=== PATIENT | male | born 1970 | race Caucasian/White ===

== ENCOUNTER 2022-11-29 09:37 | Outpatient (CLI) | payer MEDICARE, MEDICAID, SELFPAY ==
--- NOTE | 2022-11-30 09:18 | WPDPFTINT ---
PFT Procedure Performed PFT Procedure Performed Plethysmography (Lung Vol) Diffusing Cap (DLCO) Flow Vol Loop Spirometry w/o Bronchodil PFT Interpretation This is a pulmonary function test with spirometry, plethysmography and diffusing capacity. The test was performed and results interpreted in accordance with the 2019 and 2005 ATS/ERS Task Force guidelines respectively using the Global Lung Function Initiative-2012 reference equations. Patient demonstrated good effort and cooperation. Reproducibility criteria were met. The quality of the spirometry maneuver was Grade B. Findings: Spirometry: There is decreased maximal expiratory airflow at all lung volumes with concave expiratory flow tracing. The contour the inspiratory flow tracing is normal. The FVC is 3.34 L, 65% predicted. The FEV1 is 1.77 L, 44% predicted. The FEV1: FVC ratio is 53%. Plethysmography: The total lung capacity is 8.93 L, 125% predicted. The functional residual capacity is 5.96 L, 163% predicted. The residual volume is 5.42 L, 258% predicted. Diffusing capacity: The diffusing capacity unadjusted for hemoglobin and carboxyhemoglobin is 16.0, 52% predicted. The diffusing capacity adjusted for alveolar volume is 2.69, 60% predicted. Impression: There is a severe obstructive abnormality. The increase in residual volume is consistent with air trapping from an obstructive abnormality. Hyperinflation is present as demonstrated by the increase in functional residual capacity and total lung capacity and is consistent with an obstructive abnormality. The diffusing capacity unadjusted for hemoglobin and carboxyhemoglobin is moderately decreased and remains moderately decreased when adjusted for alveolar volume. There are no prior studies for comparison
== END 2022-11-29 09:38 | disposition home or self-care (01) ==
LOC: ANHPFT 09:38
PROVIDERS: Visit Provider Nurse Practitioner Gerontology
DX: J44.9 Chronic obstructive pulmonary disease, unspecified (principal); R94.2 Abnormal results of pulmonary function studies
CPT/HCPCS: 94375; 94726; 94729

== ENCOUNTER 2022-12-14 08:04 | Outpatient (CLI) | payer MEDICARE, MEDICAID, SELFPAY ==
--- NOTE | 2022-12-14 | ECHO_ITS ---
Patient Info Name: Esa Markham Age: 52 years : 1970 Gender: Male Ht: 71 in Wt: 198 lbs BSA: 2.14 m2 HR: 92 bpm Technical Quality: Poor Exam Date: 12/14/2022 8:24 AM Exam Location: [facility] Patient Status: Outpatient Admit Date: 12/14/2022 Staff Ordering Physician: Tex, Ruth CERDA Senior Hydrogeologist: Shanika Suarez RDCS Attending Provider: GiovanyRuth APRN Exam Type: CA echo doppler color flow Study Info Indications - copd Complete two-dimensional, color flow and Doppler transthoracic echocardiogram is performed. Reason for Poor Study: poor echocardiographic windows Summary 1. Complete two-dimensional, color flow and Doppler transthoracic echocardiogram is performed. 2. Technically suboptimal study due to poor sonographic images. 3. Left ventricular chamber dimension is normal. 4. Left ventricular systolic function is normal, estimated at 60-65%. 5. The left ventricular diastolic function is grade I diastolic dysfunction. 6. E/e' 6 is not elevated. Left Ventricle E/e' 6 is not elevated. Technically suboptimal study due to poor sonographic images. Left ventricular chamber dimension is normal. Left ventricular systolic function is normal, estimated at 60-65%. The left ventricular diastolic function is grade I diastolic dysfunction. Right Ventricle Right ventricular systolic function is normal based on a normal TAPSE 2.0 cm. Right ventricular chamber dimension is not well visualized. Left Atria Left atrial chamber dimension is normal. Right Atria Right atrial chamber dimension is normal. Aortic Valve The aortic valve is not well visualized. Cannot determine number of aortic valve leaflets. There is no aortic valve stenosis. There is no aortic valve regurgitation. Pulmonic Valve There is no pulmonic regurgitation. Mitral Valve There is no mitral valve stenosis. There is no mitral valve regurgitation. Tricuspid Valve The tricuspid valve leaflets are not well visualized. There is no tricuspid valve regurgitation. No pulmonary hypertension, estimated pulmonary arterial systolic pressure is 6 mmHg. Pericardium/Pleural There is no pericardial effusion. Inferior Vena Cava Normal inferior vena cava with >50% collapse upon inspiration consistent with normal right atrial pressure, 5 mmHg. Aorta The aortic root size at the sinus of Valsalva is normal. Left Ventricular Outflow Tract Name Value Normal LVOT 2D LVOT Diameter 2.1 cm LVOT Doppler LVOT Peak Gradient 2 mmHg LVOT Mean Gradient 1 mmHg LVOT VTI 13 cm LVOT VTI/AV VTI Ratio 1.3 LVOT Stroke Volume 47 ml LVOT CO 3.9 l/min LVOT CI 1.8 l/min/m2 Pulmonic Valve Name Value Normal RVOT Doppler RVOT Peak Gradient 1 mmHg
== END 2022-12-14 08:05 | disposition home or self-care (01) ==
LOC: ANHCARD 08:05
PROVIDERS: Visit Provider Nurse Practitioner Gerontology
DX: J44.9 Chronic obstructive pulmonary disease, unspecified (principal); R06.02 Shortness of breath
CPT/HCPCS: 93306

== ENCOUNTER 2023-05-13 07:24 | Outpatient (CLI) | payer MEDICARE, MEDICAID, SELFPAY ==
--- NOTE | 2023-05-13 | ECHO_ITS ---
Patient Info Name: Esa Markham Age: 52 years : 1970 Gender: Male Ht: 71 in Wt: 188 lbs BSA: 2.08 m2 HR: 94 bpm BP: 118 / 99 mmHg Heart Rhythm: Sinus Rhythm Technical Quality: Poor Exam Date: 05/13/2023 7:39 AM Exam Location: Echo Lab Patient Status: Outpatient Admit Date: 05/13/2023 Staff Ordering Physician: TexRuth APRN Firepot Operator And Tender: Daphney Tarango RDCS Attending Provider: GiovanyRuth APRN Exam Type: CA echo doppler color flow Study Info Indications - COPD Complete two-dimensional, color flow and Doppler transthoracic echocardiogram is performed. Summary 1. Complete two-dimensional, color flow and Doppler transthoracic echocardiogram is performed. 2. Normal left ventricular size and thickness with good contractility of all segments. Ejection fraction is 65-70%. Normal diastolic function. 3. Mild right ventricular hypokinesis by 2D echo. In addition the patient's tricuspid annular velocity and TAPSE are low, also suggesting RV hypokinesis. 4. Normal estimated pulmonary pressure. 5. No significant valve disease. 6. Mass which is probably a fat pad on the right ventricular apical surface, clinical correlation advised. 7. Normal sinus rhythm. Left Ventricle Left ventricular chamber dimension is normal. Left ventricular systolic function is normal, estimated at 65-70%. There is no increased left ventricular wall thickness. Left ventricular septal wall motion is normal. The left ventricular diastolic function is normal. Right Ventricle Right ventricular chamber dimension is normal. Right ventricular systolic function is reduced. Left Atria Left atrial chamber dimension is normal. Right Atria Right atrial chamber dimension is normal. Aortic Valve The aortic valve is trileaflet. There is no aortic valve sclerosis. There is no aortic valve stenosis. There is no aortic valve regurgitation. Pulmonic Valve The pulmonic valve is normal. There is no pulmonic valve stenosis. There is no pulmonic regurgitation. Mitral Valve The mitral valve has normal leaflets. There is no mitral valve stenosis. There is no mitral valve regurgitation. Tricuspid Valve The tricuspid valve leaflets are normal. There is no significant tricuspid valve stenosis. There is trace tricuspid valve regurgitation. No pulmonary hypertension, estimated pulmonary arterial systolic pressure is 24 mmHg. Pericardium/Pleural The pericardium appears normal. There is no pericardial effusion. Inferior Vena Cava Normal inferior vena cava with >50% collapse upon inspiration consistent with Empty right atrial pressure, 10 mmHg. Aorta The aortic root size at the sinus of Valsalva is normal. The prox ascending aorta size is normal. Left Ventricular Outflow Tract Name Value Normal LVOT 2D LVOT Diameter 2.0 cm LVOT Doppler LVOT Peak Gradient 2 mmHg LVOT Mean Gradient 1 mmHg LVOT VTI 12 cm LVOT VTI/AV VTI Ratio 0.9 LVOT Stroke Volume 38 ml LVOT CO 3.3 l/min LVOT CI 1.
== END 2023-05-13 07:25 | disposition home or self-care (01) ==
LOC: ANHCARD 07:27
PROVIDERS: PCP Nurse Practitioner Gerontology; Visit Provider Nurse Practitioner Gerontology
DX: J44.9 Chronic obstructive pulmonary disease, unspecified (principal); R93.1 Abnormal findings on diagnostic imaging of heart and coronary circulation
CPT/HCPCS: 93306

== ENCOUNTER 2024-02-27 12:30 | Outpatient (CLI) | payer MEDICARE, MEDICAID, SELFPAY ==
--- NOTE | 2024-02-27 16:48 | WPDPFTINT ---
PFT Procedure Performed PFT Procedure Performed Plethysmography (Lung Vol) Diffusing Cap (DLCO) Flow Vol Loop Spirometry w/o Bronchodil PFT Interpretation This is a pulmonary function test with spirometry, plethysmography and diffusing capacity. The test was performed and results interpreted in accordance with the 2019 and 2005 ATS/ERS Task Force guidelines respectively using the Global Lung Function Initiative-2012 reference equations. Patient demonstrated good effort and cooperation. Reproducibility criteria were met. The quality of the spirometry maneuver was Grade B. Findings: Spirometry: There is decreased maximal expiratory airflow at all lung volumes with concave expiratory flow tracing. The contour the inspiratory flow tracing is normal. The FVC is 2.50 L, 51% predicted. The FEV1 is 1.22 L, 31% predicted. The FEV1: FVC ratio is 49%. Plethysmography: The total lung capacity is 8.45 L, 121% predicted. The functional residual capacity is 5.49 L, 153% predicted. The residual volume is 4.36 L, 210% predicted. The residual volume: Total lung capacity ratio is 52%. Diffusing capacity: The diffusing capacity unadjusted for hemoglobin and carboxyhemoglobin is 17.3, 57% predicted. The diffusing capacity adjusted for alveolar volume is 2.74, 61% predicted. In comparison to previous pulmonary function testing on 11/29/2022 the FVC has decreased from 3.34 L to 2.50 L. The FEV1 is decreased from 1.77 L to 1.22 L. The total lung capacity is unchanged from 8.93 L to 8.45 L. The functional residual capacity is unchanged from 5.96 L to 5.49 L. The residual volume has decreased from 5.42 L to 4.36 L. The diffusing capacity unadjusted for hemoglobin and carboxyhemoglobin is unchanged from 16.0 to 17.3. The diffusing capacity adjusted for alveolar volume is unchanged from 2.69 to 2.74. Impression: There is a very severe obstructive abnormality. The increase in residual volume to total lung volume ratio is consistent with hyperinflation from an obstructive abnormality. The diffusing capacity unadjusted for hemoglobin and carboxyhemoglobin is moderately decreased and remains mildly decreased when adjusted for alveolar volume. In comparison to previous pulmonary function testing on 11/29/2022, there has been a greater than anticipated time dependent decrease in the FVC, FEV1, and residual volume with no significant change in the total lung capacity, functional residual capacity or diffusing capacity. Clinical correlation is recommended.
== END 2024-02-27 12:31 | disposition home or self-care (01) ==
LOC: ANHPFT 12:31
PROVIDERS: PCP Nurse Practitioner Gerontology
DX: J44.9 Chronic obstructive pulmonary disease, unspecified (principal); R94.2 Abnormal results of pulmonary function studies
CPT/HCPCS: 94375; 94726; 94729

== ENCOUNTER 2024-09-13 15:14 | Outpatient (CLI) | payer MEDICARE, MEDICAID, SELFPAY ==
--- NOTE | ~2024-09-13 | CT_ITS ---
CLINICAL INDICATION: Screening evaluation of the chest COMPARISON: None. TECHNIQUE: Multiple contiguous axial images of the chest was performed without the administration of intravenous contrast. This CT examination was performed utilizing dose reduction techniques. DLP: 138 mGy-cm FINDINGS/OBSERVATIONS: LUNG: Panlobular emphysematous disease with a paucity of interstitial markings. HEART: The heart is of normal size, without pericardial effusion. MEDIASTINUM: Limited evaluation without intravenous contrast. SOFT TISSUES OF THE CHEST: Unremarkable. BONES OF THE CHEST: No acute fracture. No lytic or blastic lesions are identified. UPPER ABDOMEN: Unremarkable IMPRESSION: Unremarkable CT examination of the chest, as detailed above. Lung-RADS category 1: Negative. Continue annual screening with noncontrast low-dose chest CT in 12 mo nt. Reviewed, dictated and finalized at location A. IMPRESSION: Unremarkable CT examination of the chest, as detailed above. Lung-RADS category 1: Negative. Continue annual screening with noncontrast low- dose chest CT in 12 months.
--- OUTSIDE RECORDS SUMMARY | 2024-09-13 18:00 | XMS_ITS | Data Portability ---
Author Organization [facility] [place] [facility] Address [address] [facility] [place] [address] Care Team Providers Care Extrusion Line Operator Name Role Phone MELIZA ASHLEY Primary Care Provider Assessment No assessment recorded. Plan of Treatment Reminders Order Date Submit Date Provider Last Modified By Organization Details Last Modified Time Details Appointments ANY 15 2024 01:30P M Meliza Ashley MD Not available Not available Not available Lab HbA1c (hemogl obin A1c), blood 2024 025 [facility], [address] [place] [address], [address], [place], [address], 07/27/2024 13:14:09 PSA, total, serum or plasma 2024 025 [facility], [address] [place] [address], [address], [place], [address], 07/27/2024 13:14:10 lipid panel, serum 2024 025 [facility], [address] [place] [address], [address], [place], [address], 07/27/2024 13:14:06 BMP, serum or plasma 2024 025 [facility], [address] [place] [address], [address], [place], [address], 07/27/2024 13:14:07 CMP, serum or plasma 2023 024 [facility], [address], [address], [place], [address], 02/07/2024 06:19:18 lipid panel, serum 2023 024 [facility], [address], [address], [place], [address], 02/07/2024 06:19:17 CBC 2023 024 [facility], [address], [address], [place], [address], 02/07/2024 06:19:20 TSH, ultra-s ensitiv e, serum 2023 024 [facility], [address] [facility] [address], [address], [place], [address], 02/07/2024 06:19:18 HbA1c (hemogl obin A1c), blood 2023 024 [facility], [address] [facility] [address], [address], [place], [address], 05/22/2024 01:06:16 Referral general surgeon referra l 2023 024 [facility], [facility] [address], [place], [address], 05/26/2024 12:35:11 Procedures None recorde d. Surgeries None recorde d. Imaging LDCT, chest, for lung cancer screeni ng [address], [address], 06/22/2024 06:14:19 LDCT, chest, for lung cancer screeni ng 2023 024 [facility], [address] [place] [address] [address], [place], [address], 08/13/2024 16:01:33 PFT, complet e 2023 024 [facility], [address] [place] [address] [address], [place], [address], 09/12/2024 05:01:13 Medication Orders albuter ol sulfate 2.5 mg/3 mL (0.083 %) solutio n for nebuliz ation 2023 [facility]24 [facility] [place], [address], 05/26/2024 13:12:48 Spiriva with HandiHa ler 18 mcg and inhalat ion capsule s 2023 025 [facility] [address] [place], [address], 07/26/2024 15:09:12 Ventoli n HFA 90 mcg/act uation aerosol inhaler 2023 024 [facility] [address] [place], [address], 05/19/2024 15:40:03 Wixela Inhub 250 mcg-50 mcg/dos e powder for inhalat ion 2023 025 [facility] [address] [place], [address], 07/26/2024 15:09:19 Wixela Inhub 250 mcg-50 mcg/dos e powder for inhalat ion 2023 024 [facility] [address] [place], [address], 07/26/2024 15:08:53 Spiriva with HandiHa ler 18 mcg and inhalat ion capsule s 2023 024 [facility] [address] [place], [address], 07/26/2024 15:08:37 omepraz ole 20 mg capsule ,delaye d release 2023 024 [facility] [address] [place], [address], 01/12/2024 17:21:43 losarta n 100 mg tablet 2023 024 [facility] [address] [place], [address], 01/12/2024 17:21:42 ezetimi be 10 mg tablet 2023 024 [facility] [address] [place], [address], 01/12/2024 17:21:45 Patient TargetsNo targets recorded. Patient Instructions Encounter Date Encounter Id Patient Instructions Last Modified By Organization Details Last Modified Time 01/12/2024 [id number] When You Want to Lose Weight: Care Instructions [email or web address] Not available 01/12/2024 17:21:35 A healthy lifest yle: care instructions [email or web address] Not available 01/12/2024 17:21:36 gastroesophageal reflux disease (GERD): care instructions [email or web address] Not available 01/12/2024 17:21:36 learning about h igh blood pressure [email or web address] Not available 01/12/2024 17:21:36 high cholesterol : care instructions [email or web address] Not available 01/12/2024 17:21:36 02/03/2024 [id number] A healthy lifest yle: care instructions [email or web address] Not available 02/03/2024 17:24:04 07/26/2024 [id number] learning about h igh blood sugar Not available 07/26/2024 15:32:19 learning about h igh blood pressure [email or web address] Not available 07/26/2024 15:29:43 high cholesterol : care instructions [email or web address] Not available 07/26/2024 15:29:43 chronic obstruct paula pulmonary disease (COPD): care instructions [email or web address] Not available 07/26/2024 15:29:43 learning about c opd and how to prevent lung infections [email or web address] Not available 07/26/2024 15:29:43 Reason for Referral General Surgeon Referral for Mass of scalp Referring Physician: Meliza Ashley, Internal Medicine, Encounter Date: 02/03/2024 Results Created Date Observation Date Name Description Value Unit Range Abnormal Flag Note LastModifiedBy Organization Detail LastModifiedTime 02/06/20 24 02/07/2024 LIPID PANEL cholesterol, total 99 mg/dL 100-19 9 below low normal Not Available [facility] ([facility]) [address] [place], [address], 02/07/2024 06:19:17 02/06/20 24 02/07/2024 LIPID PANEL triglyceride s 108 mg/dL 0-149 Not Available [facility] ([facility]) [address] [place], [address], 02/07/2024 06:19:17 02/06/20 24 02/07/2024 LIPID PANEL HDL cholesterol 40 mg/dL >39 Not Available [facility] ([facility]) [address] [place], [address], 02/07/2024 06:19:17 02/06/20 24 02/07/2024 LIPID PANEL VLDL cholesterol pau 20 mg/dL 5-40 Not Available [facility] ([facility]) [address] [place], [address], 02/07/2024 06:19:17 02/06/20 24 02/07/2024 LIPID PANEL LDL chol calc ([facility]) 39 mg/dL 0-99 Not Available [facility] ([facility]) [address] [place], [address], 02/07/2024 06:19:17 02/06/20 24 02/07/2024 COMP. METAB OLIC PANEL (14) glucose 100 mg/dL 70-99 above high normal Not Available [facility] ([facility]) [address] [place], [address], 02/07/2024 06:19:18 02/06/20 24 02/07/2024 COMP. METAB OLIC PANEL (14) BUN 17 mg/dL 6-24 Not Available [facility] ([facility]) [address] [place], [address], 02/07/2024 06:19:18 02/06/20 24 02/07/2024 COMP. METAB OLIC PANEL (14) creatinine 1.20 mg/dL 0.76-1 .27 Not Available [facility] ([facility]) [address] [facility] [place], [address], 02/07/2024 06:19:18 02/06/20 24 02/07/2024 COMP. METAB OLIC PANEL (14) eGFR 73 mL/mi n/1.7 3 >59 Not Available [facility] ([facility]) [address] [facility] [place], [address], 02/07/2024 06:19:18 02/06/20 24 02/07/2024 COMP. METAB OLIC PANEL (14) BUN/creatini ne ratio 14 9-20 Not Available [facility] ([facility]) [address] [facility] [place], [address], 02/07/2024 06:19:18 02/06/20 24 02/07/2024 COMP. METAB OLIC PANEL (14) sodium 139 mmol/ L 134-14 4 Not Available [facility] ([facility]) [address] [facility] [place], [address], 02/07/2024 06:19:18 02/06/20 24 02/07/2024 COMP. METAB OLIC PANEL (14) potassium 4.3 mmol/ L 3.5-5. 2 Not Available [facility] ([facility]) [address] [facility] [place], [address], 02/07/2024 06:19:18 02/06/20 24 02/07/2024 COMP. METAB OLIC PANEL (14) chloride 100 mmol/ L 96-106 Not Available [facility] ([facility]) [address] [facility] [place], [address], 02/07/2024 06:19:18 02/06/20 24 02/07/2024 COMP. METAB OLIC PANEL (14) carbon dioxide, total 26 mmol/ L 20-29 Not Available [facility] ([facility]) [address] [facility], [place], [address], 02/07/2024 06:19:18 02/06/20 24 02/07/2024 COMP. METAB OLIC PANEL (14) calcium 9.1 mg/dL 8.7-10 .2 Not Available [facility] ([facility]) [address] [facility], [place], [address], 02/07/2024 06:19:18 02/06/20 24 02/07/2024 COMP. METAB OLIC PANEL (14) protein, total 6.9 g/dL 6.0-8. 5 Not Available [facility] ([facility]) [address] [facility], [place], [address], 02/07/2024 06:19:18 02/06/20 24 02/07/2024 COMP. METAB OLIC PANEL (14) albumin 4.3 g/dL 3.8-4. 9 Not Available [facility] ([facility]) [address] [facility] [place], [address], 02/07/2024 06:19:18 02/06/20 24 02/07/2024 COMP. METAB OLIC PANEL (14) globulin, total 2.6 g/dL 1.5-4. 5 Not Available [facility] ([facility]) [address] [facility] [place], [address], 02/07/2024 06:19:18 02/06/20 24 02/07/2024 COMP. METAB OLIC PANEL (14) bilirubin, total 0.3 mg/dL 0.0-1. 2 Not Available [facility] ([facility]) [address] [place], [address], 02/07/2024 06:19:18 02/06/20 24 02/07/2024 COMP. METAB OLIC PANEL (14) alkaline phosphatase 82 IU/L 44-121 Not Available [facility] ([facility]) [address] [place], [address], 02/07/2024 06:19:18 02/06/20 24 02/07/2024 COMP. METAB OLIC PANEL (14) AST (SGOT) 18 IU/L 0-40 Not Available [facility] ([facility]) [address] [place], [address], 02/07/2024 06:19:18 02/06/20 24 02/07/2024 COMP. METAB OLIC PANEL (14) ALT (SGPT) 21 IU/L 0-44 Not Available [facility] ([facility]) [address] [place], [address], 02/07/2024 06:19:18 02/06/20 24 02/07/2024 TSH RFX ON ABNOR MAL TO FREE T4 TSH 1.350 uIU/m L 0.450- 4.500 Not Available [facility] ([facility]) [address] [place], [address], 02/07/2024 06:19:18 02/06/20 24 02/06/2024 ABN OPTIO N 3 abn option 3 Commen t One or more tests were remov ed at the reque st of the patie nt and may not be repre sente d on this repor t. As a resul t, some or all of the tests origi rebecca reque sted may not have been perfo rmed or may be repor ragini separ ately . Pleas e conta ct your patie nt regar ding any neces ya follo w-up. Not Available [facility] ([facility]) [address] [facility], [place], [address], 02/07/2024 06:19:19 02/06/2002/06/2024 CBC, PLATE LET, NO DIFFE RENTI AL WBC 6.2 x10e3 /uL 3.4-10 .8 Not Available [facility] ([facility]) [address] [facility], [place], [address], 02/07/2024 06:19:19 02/06/2002/06/2024 CBC, PLATE LET, NO DIFFE RENTI AL RBC 4.87 x10e6 /uL 4.14-5 .80 Not Available [facility] ([facility]) [address] [facility], [place], [address], 02/07/2024 06:19:19 02/06/2002/06/2024 CBC, PLATE LET, NO DIFFE RENTI AL hemoglobin 14.6 g/dL 13.0-1 7.7 Not Available [facility] ([facility]) [address] [facility], [place], [address], 02/07/2024 06:19:19 02/06/2002/06/2024 CBC, PLATE LET, NO DIFFE RENTI AL hematocrit 43.5 % 37.5-5 1.0 Not Available [facility] ([facility]) [address] [facility], [place], [address], 02/07/2024 06:19:19 02/06/2002/06/2024 CBC, PLATE LET, NO DIFFE RENTI AL MCV 89 fL 79-97 Not Available [facility] ([facility]) [address] [facility], [place], [address], 02/07/2024 06:19:19 02/06/20 24 02/06/2024 CBC, PLATE LET, NO DIFFE RENTI AL MCH 30.0 pg 26.6-3 3.0 Not Available [facility] ([facility]) [address] [facility], [place], [address], 02/07/2024 06:19:19 02/06/20 24 02/06/2024 CBC, PLATE LET, NO DIFFE RENTI AL MCHC 33.6 g/dL 31.5-3 5.7 Not Available [facility] ([facility]) [address] [facility], [place], [address], 02/07/2024 06:19:19 02/06/20 24 02/06/2024 CBC, PLATE LET, NO DIFFE RENTI AL RDW 12.6 % 11.6-1 5.4 Not Available [facility] ([facility]) [address] [facility], [place], [address], 02/07/2024 06:19:19 02/06/20 24 02/06/2024 CBC, PLATE LET, NO DIFFE RENTI AL platelets 193 x10e3 /uL 150-45 0 Not Available [facility] ([facility]) [address] [facility], [place], [address], 02/07/2024 06:19:19 07/26/19 25 07/27/2024 LIPID PANEL cholesterol, total 100 mg/dL 100-19 9 Not Available [facility] ([facility]) [address] [facility], [place], [address], 07/27/2024 13:14:06 07/26/19 25 07/27/2024 LIPID PANEL triglyceride s 137 mg/dL 0-149 Not Available [facility] ([facility]) [address] [facility], [place], [address], 07/27/2024 13:14:06 07/26/19 25 07/27/2024 LIPID PANEL HDL cholesterol 37 mg/dL >39 below low normal Not Available [facility] ([facility]) [address] [facility], [place], [address], 07/27/2024 13:14:06 07/26/19 25 07/27/2024 LIPID PANEL VLDL cholesterol pau 24 mg/dL 5-40 Not Available [facility] ([facility]) [address] [place], [address], 07/27/2024 13:14:06 07/26/19 25 07/27/2024 LIPID PANEL LDL chol calc ([facility]) 39 mg/dL 0-99 Not Available [facility] ([facility]) [address] [place], [address], 07/27/2024 13:14:06 07/26/19 25 07/27/2024 BASIC METAB OLIC PANEL (8) glucose 83 mg/dL 70-99 Not Available [facility] ([facility]) [address] [place], [address], 07/27/2024 13:14:07 07/26/19 25 07/27/2024 BASIC METAB OLIC PANEL (8) BUN 12 mg/dL 6-24 Not Available [facility] ([facility]) [address] [place], [address], 07/27/2024 13:14:07 07/26/19 25 07/27/2024 BASIC METAB OLIC PANEL (8) creatinine 1.17 mg/dL 0.76-1 .27 Not Available [facility] ([facility]) [address] [place], [address], 07/27/2024 13:14:07 07/26/19 25 07/27/2024 BASIC METAB OLIC PANEL (8) eGFR 75 mL/mi n/1.7 3 >59 Not Available [facility] ([facility]) [address] [place], [address], 07/27/2024 13:14:07 07/26/19 25 07/27/2024 BASIC METAB OLIC PANEL (8) BUN/creatini ne ratio 10 9-20 Not Available [facility] ([facility]) [address] [facility] [place], [address], 07/27/2024 13:14:07 07/26/19 25 07/27/2024 BASIC METAB OLIC PANEL (8) sodium 136 mmol/ L 134-14 4 Not Available [facility] ([facility]) [address] [facility], [place], [address], 07/27/2024 13:14:07 07/26/19 25 07/27/2024 BASIC METAB OLIC PANEL (8) potassium 4.3 mmol/ L 3.5-5. 2 Not Available [facility] ([facility]) [address] [facility], [place], [address], 07/27/2024 13:14:07 07/26/19 25 07/27/2024 BASIC METAB OLIC PANEL (8) chloride 97 mmol/ L 96-106 Not Available [facility] ([facility]) [address] [place], [address], 07/27/2024 13:14:07 07/26/19 25 07/27/2024 BASIC METAB OLIC PANEL (8) carbon dioxide, total 22 mmol/ L 20-29 Not Available [facility] ([facility]) [address] [facility], [place], [address], 07/27/2024 13:14:07 07/26/19 25 07/27/2024 BASIC METAB OLIC PANEL (8) calcium 9.5 mg/dL 8.7-10 .2 Not Available [facility] ([facility]) [address] [place], [address], 07/27/2024 13:14:07 07/26/1907/27/2024 HEMOG LOBIN A1C hemoglobin A1C 6.1 % 4.8-5. 6 above high normal Predi abete s: 5.7 - 6.4 Diabe blue: >6.4 Glyce jimbo contr ol for adult s with diabe blue: <7.0 Not Available [facility] ([facility]) [address] [facility], [place], [address], 07/27/2024 13:14:09 07/26/19 25 07/27/2024 PROST ATE-S PECIF IC AG prostate specific Ag 0.4 NG/mL 0.0-4. 0 Catarino ECLIA metho dolog y. Accor ding to the Ameri can [employer] g[employer] iatio n, Serum PSA shoul d decre ase and remai n at undet ectab le level s after radic al prost atect nida. The AUA defin es bioch emica l recur rence as an initi al PSA value 0.2 ng/mL or great er follo wed by a subse quent confi rmato ry PSA value 0.2 ng/mL or great er. Value s obtai susannah with diffe rent assay metho ds or kits canno t be used inter wall eably . Resul ts canno t be inter prete d as absol paula evide nce of the prese nce or absen ce of moon valdivia se. Not Available [facility] ([facility]) [address] [facility], [place], [address], 07/27/2024 13:14:10 04/01/20 24 04/07/2023 home sleep study No observ ation record ed. BARCODE Not Available 2023 16:03:14 06/04/20 24 02/27/2024 [facility] hodil ation No observ ation record ed. [email or web address] Not Available 06/16 10:14:45 Result Notes None recorded. Problems Name Problem SNOMED Code Status Onset Date Resolution Date Notes Provider Name and Address Organization Details Recorded Time Administratio n of influenza vaccine Active 2017 Juaquin Silva PA-C Attn: Angie espinosa,[address] [facility], [place], [address], [facility] 8 16:29:26 Essential hypertension 45944727 Active 2017 Juaquin Silva PA-C Attn: Angie espinosa,[address] [facility], [place], [address], [place] [facility] 8 16:33:09 Acute bronchitis 04153579 Active 2017 Juaquin Silva PA-C Attn: Angie espinosa,[address] [facility], [place], [address], [place] [facility] 8 15:42:40 Serum creatinine outside reference range 872242584 Active 2018 Juaquin Silva PA-C Attn: Accountmihir g,[address] [facility], [place], [address], [place] [facility] 9 15:16:35 Constipation 70514219 Active 2018 Juaquin Silva PA-C Attn: Angie espinosa,[address] [facility], [place], [address], [place] [facility] 9 16:10:36 Chronic obstructive pulmonary disease 72245056 Active 2018 see CXR 08/24/18 Juaquin Silva PA-C Attn: Angie espinosa,[address] [facility], [place], [address], [place] [facility] 9 23:28:23 Chronic kidney disease stage 2 475193618 Active 2018 Juaquin Silva PA-C Attn: Angie espinosa,[address] [facility], [place], [address], [place] [facility] 9 10:33:51 Depressive disorder 75012522 Active 2018 Juaquin Silva PA-C Attn: Isaimihir g,[address] [facility], [place], [address], [place] [facility] 9 16:09:46 Blood in urine 44611305 Active 2018 Juaquin Silva PA-C Attn: Isaimihir g,[address] [facility], [place], [address], [place] [facility] 9 16:22:17 Overweight 441685871 Active 2018 Juaquin Silva PA-C Attn: Accountin g,[address] [facility], [place], [address], [place] [facility] 9 16:29:45 Testosterone level below reference range 435377807 Active 2019 Juaquin Silva PA-C Attn: Accountmihir g,[address] [facility], [place], [address], [place] [facility] 0 17:41:07 Obese 110278507 Active 2019 Juaquin Silva PA-C Attn: Accountin g,[address] [facility], [place], [address], [place] [facility] 0 16:22:25 Screening for malignant neoplasm of prostate Active 2020 Juaquin Silva PA-C Attn: Accountin g,[address] [facility], [place], [address], [place] [facility] 1 14:22:21 Serum vitamin B12 borderline low 849463370 Active 2020 Juaquin Silva PA-C Attn: Accountin g,[address] [facility], [place], [address], [place] [facility] 1 22:22:21 Under immunized 201877502 Active 2020 Juaquin Silva PA-C Attn: Accountin g,[address] [facility], [place], [address], [place] [facility] 1 17:15:06 Hemorrhoids 23113734 Active 2021 Juaquin Silva PA-C Attn: Accountin g,[address] [facility], [place], [address], [place] [facility] 2 15:33:44 Screening for malignant neoplasm of colon Active 2021 Juaquin Silva PA-C Attn: Accountin g,[address] [facility], [place], [address], [place] [facility] 2 15:35:12 Itching of skin 785337624 Active 2022 Meliza Ashley MD Attn: Angie espinosa,[address] [facility], [place], [address], [place] [facility] 3 15:44:37 Colorectal cancer detected by DNA-based stool screening 108008366 Active 2022 Meliza Ashley MD Attn: Angie espinosa,[address] [facility], [place], [address], [place] [facility] 3 20:02:32 History of polyp of colon 565883092 Active 2023 Meliza Ashley MD Attn: Angie espinosa,[address] [facility], [place], [address], [place] [facility] 4 17:22:04 Mass of scalp 099409965 Active 2023 Meliza Ashley MD Attn: Angie espinosa,[address] [facility], [place], [address], [place] [facility] 4 17:21:47 Hyperglycemia 36526822 Active 2024 Meliza Ashley MD Attn: Angie espinosa,[address] [facility], [place], [address], [place] [facility] 5 15:31:23 Gastroesophag eal reflux disease 041655598 Active Juaquin Silva PA-C Attn: Angie espinosa,[address] [facility], [place], [address], [place] [facility] 6 15:41:18 Hyperlipidemi a 89375785 Active Juaquin Silva PA-C Attn: Accountmihir g,[address] [facility], [place], [address], [place] [facility] 6 15:41:18 Tobacco user 803060169 Active Juaquin Silva PA-C Attn: Isaimihir espinosa,[address] [facility], [place], [address], [place] [facility] 6 15:41:18 Anxiety 32037900 Active Juaquin Silva PA-C Attn: Angie espinosa,[address] [facility], [place], [address], [place] [facility] 6 15:41:18 Dental abscess 823281756 Active Juaquin Silva PA-C Attn: Angie espinosa,[address] [facility], [place], [address], [place] [facility] 6 16:43:09 Impotence Active 2016 Juaquin Silva PA-C Attn: Angie espinosa,[address] [facility], [place], [address], [place] [facility] 7 16:19:46 Family history of diabetes mellitus 198304239 Active 2016 Juaquin Silva PA-C Attn: Angie espinosa,[address] [facility], [place], [address], [place] [facility] 7 16:23:26 Melanocytic nevus 910755853 Active 2016 Juaquin Sliva PA-C Attn: Angie espinosa,[address] [facility], [place], [address], [place] [facility] 7 16:26:56 Ingrowing nail 393309970 Active 2016 right second toe Juaquin Silva PA-C Attn: Angie espinosa,[address] [facility], [place], [address], [place] [facility] 2 14:17:59 Problem Notes None recorded. Procedures Surgical History None recorded. Imaging Results Imaging Date Name Status LastModified by Organization Details LastModified Time 04/07/2023 home sleep study completed BARCODE Informat ion not available 04/01/2024 16:03:14 02/27/2024 spirometry, pre and post bronchodilation completed Information not available 06/16/2024 10:14:45 Procedure Notes None recorded. Medical Equipment None Reported. Allergies Allergen ID Allergen Name Allergen Category Reaction Reaction Severity Criticality Documentation Date Start Date Code Code System Note Provider Name and Address Organization Details Recorded Time 98062 Iodinated contrast media (substanc e) medicatio n Not available Not available Not available 09/26/2015 74210 2004 SNOMED Not Available Not Available Not Available Medications Name Sig Start Date Stop Date Status Note LastModified by Organization Details LastModified Time Prescript ion - Renewal 07/26 completed Not Available Not Available Not Available losartan 50 mg tablet Take 1 tablet every day by oral route in the morning for 30 days. 05/15 completed Not Available Not Available Not Available amoxicill in 500 mg capsule 11/30 completed Not Available Not Available Not Available atorvasta tin 40 mg tablet TAKE 1 TABLET BY MOUTH ONCE DAILY active Not Available Not Available No t Available promethaz ine-DM 6.25 mg-15 mg/5 mL oral syrup Take 5 mL every 6 hours by oral route for 10 days. 07/02 completed Not Available Not Available Not Available paroxetin e 10 mg tablet 02/26 completed Not Available Not Available Not Available benztropi ne 0.5 mg tablet 07/02 completed Not Available Not Available Not Available quetiapin e 300 mg tablet TAKE 2 TABLETS BY MOUTH ONCE DAILY AT BEDTIME active Not Available Not Available No t Available albuterol sulfate 2.5 mg/3 mL (0.083 %) solution for nebulizat ion USE 1 VIAL IN NEBULIZE R THREE TIMES DAILY NEEDED active Not Available Not Available No t Available trazodone 50 mg tablet 07/02 completed Not Available Not Available Not Available azithromy beck 250 mg tablet TAKE 2 TABLETS (500 MG) BY ORAL ROUTE ONCE DAILY FOR 1 DAY THEN 1 TABLET (250 MG) BY ORAL ROUTE ONCE DAILY FOR 4 DAYS 05/15 completed Not Available Not Available Not Available ibuprofen 800 mg tablet Take 1 tablet(s ) 3 times a day by oral route with meals for 30 days. 07/12 completed high serum creatini ne times 2 .. Not Available Not Available Not Available thiothixe ne 5 mg capsule 07/02 completed Not Available Not Available Not Available famotidin e 40 mg tablet Take 1 tablet by mouth once daily 07/26 completed Not Available Not Available Not Available prednison e 20 mg tablet TAKE 2 TABLETS BY MOUTH ONCE DAILY FOR 5 DAYS WITH FOOD FOR RASH 07/26 completed Not Available Not Available Not Available trifluope razine 5 mg tablet 09/16 completed Not Available Not Available Not Available amlodipin e 2.5 mg tablet TAKE 1 TABLET BY MOUTH ONCE DAILY IN THE MORNING 07/26 completed Not Available Not Available Not Available ciproflox acin 500 mg tablet Take 1 tablet every 12 hours by oral route for 10 days. 07/02 completed Not Available Not Available Not Available sildenafi l 100 mg tablet Take 1 TABLET BY MOUTH 1 HOUR PRIOR TO SEXUAL ACTIVITY DIRECTED , NOT TO EXCEED 1 IN 24 HOURS. active Not Available Not Available No t Available triamcino lone acetonide 0.1 % topical cream 05/15 completed Not Available Not Available Not Available simvastat in 40 mg tablet 07/02 completed Not Available Not Available Not Available hydrocort isone 2.5 % topical cream with perineal applicato r APPLY A THIN LAYER TO THE AFFECTED AREA(S) BY TOPICAL ROUTE 2-4 TIMESDAI LY 07/17 completed Not Available Not Available Not Available IBU 600 mg tablet 09/16 completed Not Available Not Available Not Available trazodone 100 mg tablet TAKE 1 TABLET BY MOUTH ONCE DAILY AT BEDTIME active Not Available Not Available No t Available oseltamiv ir 75 mg capsule TAKE 1 CAPSULE BY MOUTH ONCE DAILY FOR 5 DAYS 07/17 completed Not Available Not Available Not Available docusate sodium 100 mg capsule Take 1 capsule twice a day by oral route for 30 days. 09/16 completed Not Available Not Available Not Available omeprazol e 20 mg capsule,d elayed release TAKE 1 CAPSULE BY MOUTH TWICE DAILY BEFORE MEAL(S) 2024 active Not Available Not Available Not Avai lable trifluope razine 10 mg tablet 07/02 completed Not Available Not Available Not Available hydrocort isone 2.5 % topical cream 07/17 completed Not Available Not Available Not Available hydroxyzi ne HCl 25 mg tablet TAKE 1 TABLET BY MOUTH THREE TIMES DAILY 07/26 completed Not Available Not Available Not Available methylpre dnisolone 4 mg tablets in a dose pack TAKE BY MOUTH DIRECTED ON INSIDE OF PACKAGE 07/09 completed Not Available Not Available Not Available ketoconaz ole 2 % topical cream 05/15 completed Not Available Not Available Not Available losartan 100 mg tablet TAKE 1 TABLET BY MOUTH ONCE DAILY active Not Available Not Available No t Available amoxicill in 875 mg-potass ium clavulana te 125 mg tablet Take 1 tablet every 12 hours by oral route for 10 days. 08/19 completed Not Available Not Available Not Available Vitamin B-12 1,000 mcg tablet Take 1 tablet twice a day by oral route with meals for 30 days. 05/15 completed Not Available Not Available Not Available Ventolin HFA 90 mcg/actua tion aerosol inhaler INHALE 2 PUFFS BY MOUTH EVERY 8 HOURS NEEDED 2023 active Not Available Not Available Not Avai lable hydroxyzi ne pamoate 25 mg capsule Take 1 capsule 3 times a day by oral route as needed for 30 days. 07/02 completed Not Available Not Available Not Available ezetimibe 10 mg tablet TAKE 1 TABLET BY MOUTH ONCE DAILY active Not Available Not Available No t Available bupropion HCl XL 300 mg 24 hr tablet, extended release Take 1 tablet every day by oral route for 30 days. 05/15 completed Not Available Not Available Not Available Cialis 20 mg tablet Take 1 tablet every day by oral route for 10 days. 09/16 completed Not Available Not Available Not Available Spiriva with HandiHale r 18 mcg and inhalatio n capsules Inhale 1 capsule by inhalati on route. 07/26 completed Not Available Not Available Not Available omega-3 acid ethyl esters 1 gram capsule Take by oral route for 30 days. 12/06 completed Not Available Not Available Not Available quetiapin e 400 mg tablet 07/02 completed Not Available Not Available Not Available peg 3350-elec trolytes 236 gram-22.7 4 gram-6.74 gram-5.86 gram solution TAKE DIRECTED 07/26 completed Not Available Not Available Not Available omega 3-dha-epa -fish oil 1,000 mg (120 mg-180 mg) capsule Take 1 capsule twice a day by oral route with meals for 30 days. 05/15 completed Not Available Not Available Not Available Chantix Starting Month Box 0.5 mg (11)-1 mg (42) tablets in dose pack Take 1 startr pk by oral route. 02/09 completed Not Available Not Available Not Available Spiriva Respimat 2.5 mcg/actua tion solution for inhalatio n INHALE 2 SPRAY(S) BY MOUTH ONCE DAILY active Not Available Not Available No t Available Wixela Inhub 250 mcg-50 mcg/dose powder for inhalatio n Inhale 1 puff twice a day by inhalati on route. 07/26 completed Not Available Not Available Not Available Breyna 160 mcg-4.5 mcg/actua tion HFA aerosol inhaler Inhale by inhalati on route for 30 days. active Not Available Not Available No t Available Vitals Date Recorded Body height Body mass index (BMI) Body weight Heart rate Oxygen saturation Oxygen saturation in Arterial blood by Pulse oximetry Systolic blood pressure Diastolic blood pressure Provider Name and Address Organization Details Last Updated DateTime 4 177.8 cm 28.8 kg/m2 23511.0 7 g 114 /min 97 % 97 % 120 mm[Hg] 80 mm[Hg] Chrissy Lancaster [place] [facility] 4 16:51:39 Date Recorded Body height Body mass index (BMI) Body weight Heart rate Oxygen saturation Oxygen saturation in Arterial blood by Pulse oximetry Systolic blood pressure Diastolic blood pressure Provider Name and Address Organization Details Last Updated DateTime 4 177.8 cm 28.7 kg/m2 61910.4 7 g 96 /min 97 % 97 % 130 mm[Hg] 88 mm[Hg] Chrissy Lancaster [place] [facility] 4 17:12:09 Date Recorded Body height Body mass index (BMI) Body weight Body temperature Respiratory rate Pain severity - 0-10 verbal numeric rating [Score] - Reported Oxygen saturation Oxygen saturation in Arterial blood by Pulse oximetry Heart rate Systolic blood pressure Diastolic blood pressure Provider Name and Address Organization Details Last Updated DateTime 4 177.8 cm 28.7 kg/m2 38379.4 7 g 97.8 [degF] 18 /min 0 98 % 98 % 98 /min 114 mm[Hg] 80 mm[Hg] Candelaria Hammond LPN [place] [facility] 4 15:58:28 Date Recorded Body height Body mass index (BMI) Body weight Body temperature Respiratory rate Pain severity - 0-10 verbal numeric rating [Score] - Reported Oxygen saturation Oxygen saturation in Arterial blood by Pulse oximetry Heart rate Systolic blood pressure Diastolic blood pressure Provider Name and Address Organization Details Last Updated DateTime 4 177.8 cm 28.6 kg/m2 44495.8 8 g 96.8 [degF] 18 /min 0 96 % 96 % 104 /min 122 mm[Hg] 88 mm[Hg] Candelaria Hammond LPN [facility] 4 15:28:17 Date Recorded Body height Body mass index (BMI) Body weight Heart rate Oxygen saturation Oxygen saturation in Arterial blood by Pulse oximetry Systolic blood pressure Diastolic blood pressure Provider Name and Address Organization Details Last Updated DateTime 5 177.8 cm 29.1 kg/m2 63809.3 9 g 97 /min 96 % 96 % 111 mm[Hg] 80 mm[Hg] Janusz Silva MA [facility] 5 15:14:15 Social History Question Answer Notes LastModified by Organizat ion Details LastModified Time Tobacco Smoking Status Current Every Day Smoker Staci Mc MA [facility] 08/03/2018 15:45:23 Do You Have An Advance Directive? No Information not available 09/05/2022 What Is Your Level Of Alcohol Consumption? None Information not available 10/12/2020 Are You Blind Or Do You Have Difficulty Seeing? No Information not available 10/12/2020 What Is Your Level Of Caffeine Consumption? Moderate Information not available 10/12/2020 In The 14 Days Before Symptom Onset, Have You Had Close Contact With A Laboratory-confir med COVID-19 While That Case Was Ill? No Information not available 09/05/2022 In The 14 Days Before Symptom Onset, Have You Had Close Contact With A Person Who Is Under Investigation For COVID-19 While That Person Was Ill? No Information not available 09/05/2022 Have You Been To An Area Known To Be High Risk For COVID-19? No Information not available 09/05/2022 Are You Currently Employed? No Information not available 10/12/2020 Are You Deaf Or Do You Have Serious Difficulty Hearing? No Information not available 10/12/2020 What Type Of Diet Are You Following? REGULAR Information not available 10/12/2020 Do You Have A Medical Power Of Pediatric Dermatologist? No Information not available 09/05/2022 What Was The Date Of Your Most Recent Tobacco Screening? 07/26/2024 Information not available 07/26/2024 What Is Your Relationship Status? Single Information not available 10/12/2020 Do You Use Your Seat Belt Or Car Seat Routinely? Yes Information not available 10/12/2020 Are You Sexually Active? No Information not available 10/12/2020 Do You Have Smoke And Carbon Monoxide Detectors In Your Home? No Information not available 10/12/2020 Are You Passively Exposed To Smoke? No Information no t available 10/12/2020 How Much Tobacco Do You Smoke? 2 PPD Information not available 10/12/2020 Do You Feel Stressed (tense, Restless, Nervous, Or Anxious, Or Unable To Sleep At Night)? [id number] Information not available 10/12/2020 Do You Use Any Illicit Or Recreational Drugs? Yes Marijuna Information not available 10/12/2020 Do You Use Sunscreen Routinely? Yes Information not available 10/12/2020 Has Tobacco Cessation Counseling Been Provided? Yes Information not available 02/09/2021 On What Date Was Tobacco Cessation Counseling Provided? 07/26/2024 Information not available 07/26/2024 Do You Or Have You Ever Used Any Other Forms Of Tobacco Or Nicotine? No Information not available 11/14/2022 Sex: Male Functional Status Question Answer Note LastModified by Organization D etails LastModified Time Are you able to care for yourself? Yes Information n ot available 10/12/2020 What is your exercise level? None Information not available 10/12/2020 Mental Status None recorded. Family History Relationship Description Onset Age of this Age Resolved Age Notes LastModified by Organization Details LastModified Time Father Hypercholest erolemia mnelsonma Not available 2015 15:19:52 Father Diabetes mellitus mnelsonma Not available 2015 15:19:52 Brother Diabetes mellitus mnelsonma Not available 2015 15:19:52 Medical History Condition Response Anxiety Disorder Y Acid Reflux (GERD) Y High Blood Pressure Y High Cholesterol Y Immunizations Vaccine Type Date Status Note Provider Nam e and Address Organization Details Recorded Time SARS-COV-2 (COVID-19) vaccine, UNSPECIFIED 1 completed Juaquin Silva PA-C Attn: Accounting,[address] [facility], [place], [address], [place] [facility] 10/12/2020 17:13:49 COVID-19, mRNA, LNP-S, PF, 30 mcg/0.3 mL dose 1 completed Tarik Coleman null, [place] [facility] 12/29/2020 16:05:21 zoster recombinant 1 completed Analisa Smith LPN [place], [place] [facility] 02/13/2021 09:34:38 Tdap 7 completed Not Available [facility] 07/17/2019 02:33:24 Influenza, split virus, quadrivalent, PF 4 completed Fay Theodore RN [place], [place] [facility] 08/11/2024 16:45:43 Influenza, split virus, quadrivalent, preservative 7 completed Not Available [facility] 07/17/2019 02:39:18 Influenza, split virus, quadrivalent, PF 8 completed Not Available [facility] 07/17/2019 02:36:31 Influenza, split virus, quadrivalent, preservative 0 completed Ronel Bourne [place], [place] [facility] 06/06/2020 17:08:14 Influenza, split virus, quadrivalent, preservative 1 completed Ronel Bourne [place], [place] [facility] 04/10/2021 15:20:15 Past Encounters Encounter ID Performer Location Encounter Start Date Encounter Closed Date Diagnosis/Indication Diagnosis SNOMED-CT Code Diagnosis ICD10 Code Diagnosis Note [id number] SHEFALI Thorne (Adult Med) [address] [place] [address] [id number] 0 05/30/2014 10:07:51 05/30/2014 17:08:05 Needs influenza immunization 790225498 [id number] SHEFALI Thorne (Adult Med) [address] [place] [address] [id number] 0 09/26/2015 15:02:30 09/26/2015 18:20:30 Gastroesophageal reflux disease 840850268 K21.9 Hyperlipidemia 55588107 E78.5 Tobacco user 412793728 Z 72.0 quit one week 2 days ago , uses e-cigarett e periodical ly Anxiety 38894445 F41.9 [id number] SHEFALI Thorne (Adult Med) [address] [place] [address] [id number] 0 08/02/2016 14:43:35 08/02/2016 16:30:31 Tobacco user 387359188 Z72.0 quit one week 2 days ago , uses e-cigarett e periodical ly Gastroesop hageal reflux disease 145832114 K21.9 Anxiety 71666006 F41.9 Hyperlipidemia 66144571 E78.5 Impotence 644120575 N52. 9 Family his tory of diabetes mellitus 840544392 Z83.3 Melanocytic nevus 207319 001 D22.9 [id number] FELICIA Lovell (Adult Med) [address] [place] [address] [id number] 0 08/08/2016 15:45:14 08/08/2016 16:52:21 Adult health examination 198814444 Z00.00 [id number] SHEFALI Thorne (Adult Med) [address] [place] [address] [id number] 0 02/27/2017 13:55:02 02/27/2017 17:03:34 Ingrowing nail 181277700 L60.0 2nd toe left foot [id number] FELICIA Lovell (Adult Med) [address] [place] [address] [id number] 0 03/10/2017 14:18:53 03/11/2017 12:20:23 Administration of influenza vaccine 77973026 Z23 [id number] SHEFALI Thorne (Adult Med) [address] [place] [address] 0 05/05/2018 15:35:44 05/05/2018 16:44:39 Impotence 775195678 N52.9 Gastroesop hageal reflux disease 309649848 K21.9 Administra tion of influenza vaccine 86675780 Z23 Essential hypertension 19313019 I10 Hyperlipidemia 85118918 E78.5 Family his tory of diabetes mellitus 331905905 Z83.3 [id number] SHEFALI Thorne (Adult Med) [address] [place] [address] 0 06/04/2018 13:51:20 06/04/2018 15:49:06 Acute bronchitis 87356117 J20.9 Essential hypertension 35994527 I10 Gastroesop hageal reflux disease 087104359 K21.9 Hyperlipidemia 55036198 E78.5 Anxiety 86765830 F41.9 Impotence 787061138 N52. 9 Tobacco user 702939502 Z 72.0 quit one week 2 days ago , uses e-cigarett e periodical ly [id number] SHEFALI Thorne (Adult Med) [address] [place] [address] [id number] 0 07/02/2018 14:19:01 07/02/2018 15:19:45 Hyperlipidemia 88219213 E78.5 Serum crea tinine outside reference range 683838080 R79.89 Essential hypertension 37952990 I10 Tobacco user 708543432 Z 72.0 quit one week 2 days ago , uses e-cigarett e periodical ly Gastroesop hageal reflux disease 211648764 K21.9 Anxiety 17198055 F41.9 [id number] SHEFALI Thorne (Adult Med) [address] [place] [address] [id number] 0 08/03/2018 15:07:25 08/03/2018 16:16:37 Constipation 09809998 K59.00 Hyperlipidemia 98839435 E78.5 Essential hypertension 28563189 I10 Tobacco user 019272020 Z 72.0 quit one week 2 days ago , uses e-cigarett e periodical ly Gastroesop hageal reflux disease 691340353 K21.9 [id number] SHEFALI Thorne (Adult Med) [address] [place] [address] 0 10/05/2018 16:05:56 10/05/2018 16:46:38 Hyperlipidemia 68495008 E78.5 Gastroesop hageal reflux disease 428281529 K21.9 Impotence 530849439 N52. 9 Chronic ob structive pulmonary disease 40683482 J44.9 Ingrowing nail 354491629 L60.0 2nd toe left foot Essential hypertension 39458164 I10 Anxiety 71220479 F41.9 Chronic ki dney disease stage 2 800009225 N18.2 [id number] SHEFALI Thorne (Adult Med) [address] [place] [address] 0 11/30/2018 15:10:06 12/01/2018 08:54:12 Chronic obstructive pulmonary disease 74817314 J44.9 Essential hypertension 22229570 I10 Gastroesop hageal reflux disease 727539492 K21.9 Hyperlipidemia 49274067 E78.5 Impotence 040533494 N52. 9 Depressive disorder 3548 9007 F33.8 Tobacco user 089760409 Z 72.0 quit one week 2 days ago , uses e-cigarett e periodical ly [id number] SHEFALI Thorne (Adult Med) [address] [place] [address] 0 01/01/2019 14:38:49 01/01/2019 16:29:16 Depressive disorder 73486387 F33.8 Essential hypertension 06053169 I10 Chronic ki dney disease stage 2 845809605 N18.2 Hyperlipidemia 72194706 E78.5 Blood in urine 08996168 R31.9 Chronic ob structive pulmonary disease 06830719 J44.9 Gastroesop hageal reflux disease 937754843 K21.9 Anxiety 50485517 F41.9 [id number] SHEFALI Thorne (Adult Med) [address] [place] [address] 0 03/04/2019 14:56:46 03/05/2019 12:23:57 Hyperlipidemia 31777937 E78.5 Gastroesop hageal reflux disease 082124556 K21.9 Essential hypertension 56560055 I10 Overweight 786528880 E66 .3 Tobacco user 493218804 Z 72.0 quit one week 2 days ago , uses e-cigarett e periodical ly Chronic ki dney disease stage 2 187183441 N18.2 Depressive disorder 3548 9007 F33.8 Chronic ob structive pulmonary disease 21738887 J44.9 [id number] SHEFALI Thorne (Adult Med) [address] [place] [address] [id number] 0 05/18/2019 14:00:26 05/19/2019 10:27:58 Dental abscess 271548060 K04.7 Impotence 853366279 N52. 9 Tobacco user 483044772 Z 72.0 quit one week 2 days ago , uses e-cigarett e periodical ly Anxiety 47153249 F41.9 Chronic ki dney disease stage 2 546801792 N18.2 Chronic ob structive pulmonary disease 28919482 J44.9 Essential hypertension 39446252 I10 Gastroesop hageal reflux disease 845932672 K21.9 Hyperlipidemia 62483278 E78.5 [id number] SHEFALI Thorne (Adult Med) [address] [place] [address] [id number] 0 08/19/2019 15:55:58 08/19/2019 16:29:37 Impotence 395411793 N52.9 Essential hypertension 58027186 I10 Gastroesop hageal reflux disease 155933164 K21.9 Ingrowing nail 684262732 L60.0 2nd toe left foot Hyperlipidemia 65520713 E78.5 Anxiety 40795188 F41.9 Chronic ki dney disease stage 2 055357172 N18.2 Chronic ob structive pulmonary disease 15831621 J44.9 Depressive disorder 3544 9007 F33.8 [id number] SHEFALI Thorne (Adult Med) [address] [place] [address] [id number] 0 09/17/2019 15:51:51 09/21/2019 12:21:03 Gastroesophageal reflux disease 553994836 K21.9 Obese 341997458 E66.9 Hyperlipidemia 10851989 E78.5 Depressive disorder 3548 9007 F33.8 Chronic ki dney disease stage 2 135880398 N18.2 Chronic ob structive pulmonary disease 93516026 J44.9 Anxiety 04188481 F41.9 [id number] SHEFALI Thorne (Adult Med) [address] [place] [address] [id number] 0 06/06/2020 15:49:13 06/07/2020 12:38:56 Administration of influenza vaccine 57353088 Z23 Tobacco user 041537533 Z 72.0 quit one week 2 days ago , uses e-cigarett e periodical ly Gastroesop hageal reflux disease 286053359 K21.9 Essential hypertension 62220929 I10 Chronic ki dney disease stage 2 885960035 N18.2 Chronic ob structive pulmonary disease 31067628 J44.9 Impotence 855033798 N52. 9 Hyperlipidemia 96251923 E78.5 [id number] SHEFALI Thorne (Adult Med) [address] [place] [address] [id number] 0 10/12/2020 16:44:02 10/13/2020 10:20:31 Chronic kidney disease stage 2 504221300 N18.2 Chronic ob structive pulmonary disease 44013428 J44.9 Essential hypertension 99781325 I10 Under immunized 00522448 8 Z28.3 [id number] SHEFALI Thorne (Adult Med) [address] [place] [address] [id number] 0 02/09/2021 12:33:47 02/09/2021 16:07:51 Chronic obstructive pulmonary disease 71659748 J44.9 Chronic ki dney disease stage 2 044600204 N18.2 Anxiety 57535327 F41.9 Essential hypertension 32578370 I10 Gastroesop hageal reflux disease 871552442 K21.9 Hyperlipidemia 46362857 E78.5 Tobacco user 142265435 Z 72.0 quit one week 2 days ago , uses e-cigarett e periodical ly [id number] SHEFALI Thorne (Adult Med) [address] [place] [address] [id number] 0 04/10/2021 14:56:03 04/10/2021 15:31:43 Hyperlipidemia 26572595 E78.5 Essential hypertension 88192612 I10 Gastroesop hageal reflux disease 210973231 K21.9 Chronic ob structive pulmonary disease 54879254 J44.9 Impotence 366911860 N52. 9 Serum dereck min B12 borderline low 782754671 R79.89 Administra tion of influenza vaccine 92139266 Z23 [id number] SHEFALI Thorne (Adult Med) [address] [place] [address] [id number] 0 06/11/2021 14:54:46 06/11/2021 15:12:18 Chronic obstructive pulmonary disease 08625878 J44.9 Gastroesop hageal reflux disease 047136676 K21.9 Hyperlipidemia 70414175 E78.5 Serum crea tinine outside reference range 461483063 R79.89 Serum dereck min B12 borderline low 394171618 R79.89 Anxiety 59917838 F41.9 Chronic ki dney disease stage 2 257481678 N18.2 Constipation 81190850 K5 9.00 Depressive disorder 3548 9007 F33.8 Essential hypertension 84764981 I10 Tobacco user 338076744 Z 72.0 quit one week 2 days ago , uses e-cigarett e periodical ly [id number] FELICIA Walters (Adult Med) [address] [place] [address] [id number] 0 09/10/2021 15:10:53 09/10/2021 16:38:13 Chronic obstructive pulmonary disease 59270270 J44.9 Chronic ki dney disease stage 2 031592594 N18.2 Essential hypertension 65045931 I10 Gastroesop hageal reflux disease 684546889 K21.9 Hyperlipidemia 76444475 E78.5 Screening for malignant neoplasm of prostate 306366084 Z12.5 Serum dereck min B12 borderline low 338421234 R79.89 Hemorrhoids 49329756 K64 .9 Screening for malignant neoplasm of colon 064019853 Z12.11 [id number] SHEFALI Thorne (Adult Med) [address] [place] [address] [id number] 0 10/18/2021 13:55:38 10/19/2021 09:43:12 Acute bronchitis 84338684 J20.9 Ingrowing nail 339146853 L60.0 2nd toe left foot Anxiety 30077088 F41.9 Chronic ki dney disease stage 2 369897038 N18.2 Chronic ob structive pulmonary disease 51100180 J44.9 Depressive disorder 3548 9007 F33.8 Essential hypertension 24701682 I10 Gastroesop hageal reflux disease 944816649 K21.9 Hyperlipidemia 79099479 E78.5 Serum dereck min B12 borderline low 704973287 R79.89 Tobacco user 081145571 Z 72.0 quit one week 2 days ago , uses e-cigarett e periodical ly [id number] MD Darcy Kendall (Adult Med) [address] [place] [address] [id number] 0 05/15/2022 14:37:27 05/17/2022 12:43:17 Chronic obstructive pulmonary disease 16687050 J44.9 [id number] MD Darcy Kendall (Adult Med) [address] [place] [address] [id number] 0 07/17/2022 14:26:53 07/18/2022 10:41:15 Chronic obstructive pulmonary disease 76554680 J44.9 Testostero ne level below reference range 062829976 R79.89 Essential hypertension 63138035 I10 Family his tory of diabetes mellitus 977302781 Z83.3 [id number] TERRY CHAKRABORTY NP [facility] [address] [place] [address] 09/05/2022 13:54:42 09/12/2022 07:41:22 Chronic obstructive pulmonary disease 90954558 J44.9 Using Advair, benefiting better from Symbicort. Stop Advair, start Symbicort 160 mcgPFT to assess lung functionEc [facility] Nicotine dependence 5629 4008 F17.200 tobacco - 2 ppd for 40 years , 80 PYHsmoking cessation discussed Obesity 952746904 E66.9 [id number] MD Darcy Kendall (Adult Med) [address] [place] [address] [id number] 0 11/14/2022 14:03:49 11/18/2022 16:05:49 Overweight 645378207 E66.3 Chronic ki dney disease stage 2 892385329 N18.2 Chronic ob structive pulmonary disease 40418970 J44.9 Essential hypertension 90325518 I10 Gastroesop hageal reflux disease 120981776 K21.9 Hyperlipidemia 35694205 E78.5 Tobacco user 176063932 Z 72.0 [id number] TERRY CHAKRABORTY NP [facility] [address] [place] [address] 12/06/2022 13:54:52 12/10/2022 08:39:08 Sleep disorder 03354404 G47.9 overnight oximetry study 10/08/22, desaturati on below 88% for 8 min, low 85%, GENTRY increased at 17, duration of study 5hr 57 minsWill order sleep study to eval for sleep apnea, pt has complaints /concerns with sleep Chronic ob structive pulmonary disease 73340399 J44.9 stableSymb icort 160 mcgPFT to assess lung function , will request results from Petros ho Joseta rt Spirivanee ds nebulizer Nicotine dependence 5629 4008 F17.200 tobacco - 2 ppd for 40 years , 80 PYHsmoking cessation discussed LDCT pending Obesity 125202974 E66.9 [id number] MD Darcy Kendall (Adult Med) [address] [place] [address] [id number] 0 02/26/2023 15:15:12 03/01/2023 08:38:45 Overweight 472721116 E66.3 Chronic ki dney disease stage 2 763518568 N18.2 Chronic ob structive pulmonary disease 77302487 J44.9 Essential hypertension 60302976 I10 Gastroesop hageal reflux disease 921719706 K21.9 Hyperlipidemia 70286487 E78.5 Tobacco user 836428556 Z 72.0 Constipation 91598301 K5 9.00 Family his tory of diabetes mellitus 803313469 Z83.3 Screening for malignant neoplasm of colon 153635123 Z12.11 [id number] MD [facility] (Adult Med) [address] [place] [phone] 03/11/2023 14:35:04 03/14/2023 17:14:48 Itching of skin 770670791 L29.9 [id number] Eladio Nick MD [facility] [address] [place] [address] 03/19/2023 14:03:22 03/21/2023 08:59:29 Sleep disorder 38395861 G47.9 overnight oximetry study 10/08/22, desaturati on below 88% for 8 min, low 85%, GENTRY increased at 17, duration of study 5hr 57 minsWill order sleep study to eval for sleep apnea, pt has complaints /concerns with sleep Chronic ob structive pulmonary disease 63131623 J44.9 stableSymb icort 160 mcgPFT to assess lung function , [facility] rt Spirivanee ds nebulizer Nicotine dependence 5629 4008 F17.200 tobacco - 2 ppd for 40 years , 80 PYHsmoking cessation discussed LDCT pending Obesity 371814923 E66.9 Obstructiv e sleep apnea syndrome 90366113 G47.33 Sleep apnea 52003769 G47 .30 [id number] Meliza Ashley MD [facility] (Adult Med) [address] [place] [address] 0 06/02/2023 14:23:02 06/04/2023 14:22:43 Overweight 680619325 E66.3 Serum crea tinine outside reference range 747325938 R79.89 Itching of skin 77382331 0 L29.9 Improved Screening for malignant neoplasm of colon 433757947 Z12.11 Result pending [id number] Eladio Nick MD [facility] [address] [place] [address] 07/09/2023 13:50:29 07/15/2023 13:51:27 Chronic obstructive pulmonary disease 83763240 J44.9 MDIMDI teaching Essential hypertension 68104372 I10 home meds Anxiety 52067050 F41.9 seroquel [id number] Eladio Nick MD [facility] [address] [place] [address] 11/19/2023 15:21:50 11/20/2023 08:34:44 Chronic obstructive pulmonary disease 26889920 J44.9 MDIMDI teaching Essential hypertension 96823782 I10 home meds Anxiety 80652266 F41.9 seroquel Chronic cough 15270851 R 05.3 Nicotine dependence 5629 4008 F17.200 tobacco - 2 ppd for 40 years , 80 PYHsmoking cessation discussed LDCT pending [id number] Meliza Ashley MD [facility] (Adult Med) [address] [place] [phone] 0 01/12/2024 16:26:03 01/14/2024 15:47:22 Overweight 282635907 E66.3 Essential hypertension 53909574 I10 Family his tory of diabetes mellitus 740409154 Z83.3 Gastroesop hageal reflux disease 090801364 K21.9 Hyperlipidemia 63625006 E78.5 Obese 745465787 E66.9 History of polyp of colon 547933919 Z86.010 F/U GI [id number] Meliza Ashley MD [facility] (Adult Med) [address] [place] [address] 02/03/2024 16:59:42 02/05/2024 09:46:48 Overweight 392298379 E66.3 Mass of scalp 193055783 R22.0 [id number] Eladio Nick MD [facility] [address] [place] [address] 02/18/2024 15:38:24 02/19/2024 13:44:35 Chronic obstructive pulmonary disease 16134267 J44.9 MDIMDI teaching Essential hypertension 02074258 I10 home meds Anxiety 76022480 F41.9 seroquel Chronic cough 07406442 R 05.3 Nicotine dependence 5629 4008 F17.200 tobacco - 2 ppd for 40 years , 80 PYHsmoking cessation discussed LDCT pending [id number] Eladio Nick MD [facility] [address] [place] [address] 05/19/2024 14:57:14 05/21/2024 07:06:54 Chronic obstructive pulmonary disease 18265321 J44.9 RIGO teaching Essential hypertension 45261066 I10 home meds Anxiety 15587066 F41.9 seroquel Chronic cough 27993446 R 05.3 Nicotine dependence 5629 4008 F17.200 tobacco - 2 ppd for 40 years , 80 PYHsmoking cessation discussed LDCT pending [id number] MD [facility] (Adult Med) [address] [place] [phone] 0 07/26/2024 14:54:31 07/28/2024 17:16:09 Chronic obstructive pulmonary disease 86479305 J44.9 Essential hypertension 61416234 I10 Hyperlipidemia 21854311 E78.5 Hyperglycemia 07930781 R 73.9 Screening for malignant neoplasm of prostate 516261104 Z12.5 Health Concerns Section Related Observation LastModified by Organization Detai ls LastModified Time None Recorded Concern Status LastModified by Organization Details LastModified Time None Recorded Advance Directives Directive N: Payers Encounter Date Sequence Insurance Name Policy Number Policy Perales Covered Member ID Perales Member ID Guarantor Name 01/12/2024 1 [place] Esa Markham [id number] Esa Markham 01/12/2024 2 [place]ARE OR MEDICARE REPLACEMENT PRIMARY) Esa Markham [id number] Esa Markham 02/03/2024 1 [place] Esa Markham [id number] Esa Markham 02/03/2024 2 [place] REPLACEMENT [place]IMARY) Esa Markham [id number] Esa Markham 02/18/2024 1 [place] Esa L Rashi [id number] Esa Markham 02/18/2024 2 [place]IC[place] REPLACEMENT PRIMARY) Esa Markham [id number] Esa Markham 05/19/2024 1 [place] Esa Markham [id number] Esa Markham 05/19/2024 2 [place] OR MEDICARE REPLACEMENT [place]IMARY) Esa Crooksn [id number] Esa Crooksn 07/26/2024 1 [place] Esa Markham [id number] Esa Crooksn 07/26/2024 2 [place] OR MEDICARE REPLACEMENT [place]IMARY) sEa Crooksn [id number] Esa Crooksn Notes Date Note Type Note Provider Name and Address Organization Details Recorded Time 01/12/2024 text/html Here for f/u. Reportedly had polyps on colonoscopy in Feb 2023 Meliza Ashley MD Attn: Accounting, [address] [place], [address], [place] [facility] 01/12/2024 17:22:43 02/03/2024 text/html Here for a bump on his head in the past couple days. Itr is not painful. Meliza Ashley MD Attn: Accounting, [address] [place], [address], [place] [facility] 02/03/2024 17:24:58 02/18/2024 text/html f/u for COPD smokes 1.5 PPD has a smokers cough Baseline SOBNo PND symbicort 160 mcg not covered by insurance ventolin - 1-3x weekly marijuana use twice a day PFTs done at [facility] in November 2022 showed severe airways obstruction Eladio Nick MD [address] [place], [address], [place] [facility] 02/18/2024 16:05:04 05/19/2024 text/html f/u for COPD smokes 1.5 PPD has a smokers cough Baseline SOB No PND ventolin - 1-3x weekly marijuana use twice a day PFTs done at [facility] in November 2022 showed severe airways obstruction Eladio Nick MD [address] [place], [address], [place] [facility] 05/19/2024 15:40:59 07/26/2024 text/html Here for routine f/u . Says his insurance will not pay for any testing to be done Meliza Ashley MD Attn: Accounting[address] [facility], [place], [address], [facility] - [facility] 07/26/2024 15:32:46
--- OUTSIDE RECORDS SUMMARY | 2024-09-13 18:00 | XMS_ITS | Clinical Summary ---
Author Organization [facility] Facility Address [address] [place] [address] Care Team Providers Care Lounge Car Attendant Name Role Phone Unavailable Primary Care Provider Unavailabl e Allergies Active Allergy Reactions Criticality Noted Date Comments Iodinated Contrast Media Other (see comments) 0 01/08/2021 Medications atorvastatin (LIPITOR) 40 MG tablet Take 40 mg by mouth 1 (one) time each day Active buPROPion XL (WELLBUTRIN XL) 300 MG 24 hr tablet Take 300 mg by mouth 1 (one) time each day in the morning Active ezetimibe (ZETIA) 10 MG tablet Take 10 mg by mouth 1 (one) time each day Active losartan (COZAAR) 50 MG tablet Take 1 tablet by mouth 1 (one) time each day Active omeprazole (PriLOSEC) [address] capsule Take 20 mg by mouth 1 (one) time each day Active QUEtiapine (SEROquel) 300 MG tablet Take 2 tablets by mouth every night Active sildenafil (VIAGRA) 100 MG tablet Take 1 tablet by mouth 1 (one) time each day Active traZODone (DESYREL) 100 MG tablet Take 1 tablet by mouth 1 (one) time each day Active trifluoperazine (STELAZINE) 10 MG tablet Take 10 mg by mouth 1 (one) time each day if needed Active acetaminophen (TYLENOL) 500 MG tablet Take 500 mg by mouth every 6 (six) hours if needed for mild pain Active albuterol (2.5 MG/3ML) 0.083% nebulizer solution USE 1 VIAL IN NEBULIZER THREE TIMES DAILY NEEDED Active Ventolin HFA 108 (90 Base) MCG/ACT inhaler 3 Active Symbicort 160-4.5 MCG/ACT inhaler 3 Active amLODIPine (NORVASC) 2.5 MG tablet Take 1 tablet (2.5 mg total) by mouth 1 (one) time each day in the morning 90 tablet 4 02/10/20 25 Active Active Problems Problem Noted Date Diagnosed Date Emphysema, not otherwise specified 07/20/2024 Bipolar disorder 01/08/2021 Chronic kidney disease stage 2 01/08/2021 Essential hypertension 01/08/2021 Gastroesophageal reflux disease 01/08/2021 Heavy smoker (over 20 per day) 01/08/2021 Hyperlipidemia 01/08/2021 Microscopic hematuria 01/08/2021 Blood in urine 09/03/2019 Encounters Date Type Department Care Team Description 07/20/2024 10:45 AM INSPECTOR LINE Office Visit [facility] [address] [address] Matthew Roger MD Chronic kidney disease stage 2 (Primary Dx); Essential hypertension; Emphysema, not otherwise specified (HCC); Bipolar disorder, current episode hypomanic (HCC); Gastroesophageal reflux disease; Heavy smoker (over 20 per day); Pure hyperglyceridemia 07/19/2024 Documentation Only [facility] [address] [place] [phone] Matthew Roger MD from Last 3 Months Immunizations Name Administration Dates Next Due Influenza TIV (IM) 05/03/2019,05/05/2018 Family History Medical History Relation Comments Diabetes Father Diabetes Sibling 1 Hypertension Sibling 2 Relation Status Comments Father Mother Alive Sibling 1 Sibling 2 Social History Tobacco Use Types Packs/Day Years Used Date Smoking Tobacco: Every Day Cigarettes Smokeless Tobacco: Never Alcohol Use Standard Drinks/Week Comments No 0 (1 standard drink = 0.6 oz pur e alcohol) Sex and Gender Information Value Date Recorded Sex Assigned at Not on file Legal Sex Male 2:50 PM EDT Gender Identity Not on file Sexual Orientation Not on file Last Filed Vital Signs Vital Sign Reading Time Taken Comments Blood Pressure 118/80 07/20/2024 10:33 AM INSPECTOR LINE Pulse 72 07/20/2024 10:33 AM INSPECTOR LINE Temperature 36.7 C (98 F) 07/20/2024 10:33 AM INSPECTOR LINE Respiratory Rate 18 07/20/2024 10:33 AM INSPECTOR LINE Oxygen Saturation 99% 07/20/2024 10:33 AM INSPECTOR LINE Inhaled Oxygen Concentration - - Weight 91.7 kg (202 lb 1.6 oz) 07/20/2024 10:33 AM INSPECTOR LINE Height 177.8 cm (5' 10 ) 02/10/2024 10:09 AM CDT Body Mass Index 29 02/10/2024 10:09 AM CDT Plan of Treatment Upcoming Encounters Date Type Department Care Team (Late st Contact Info) Description 01/18/2025 10:45 AM CDT Office Visit [facility], [facility] [address] [facility] [address] [place] [address] Matthew Roger MD [address] [facility] [address] [place] [address] Health Maintenance Due Date Last Done Comments Pneumococcal Vaccine: Pediat rics (0 to 5 Years) and At-Risk Patients (6 to 64 Years) (1 of 2 - PCV) 1977 Hepatitis B Vaccine (1 of 3 - 19+ 3-dose series) 1990 Colorectal Cancer Screening: Annual FOBT 2020 Colorectal Cancer Screening: Colonoscopy 2020 Colorectal Cancer Screening: Sigmoidoscopy 2020 Influenza Vaccine (#1) 2024 , 06/06/2020, 05/03/2019, Additional history exists Procedures Procedure Name Priority Date/Time Associated Diagnosis Comments EXT RESULT ENTRY Routine 07/16/2024 from Last 3 Months Results * (ABNORMAL) EXT RESULT ENTRY (07/16/2024) WBC 7.8 3.3 - 10.0 10*3/ML Red Blood Cell Count 5.10 Hemoglobin 15.6 13.5 - 17.5 Hematocrit 45.6 41.0 - 53.0 Platelets 233 150 - 399 10*3/UL MCV 89.4 82.0 - 108.0 Sodium 136(A) 137 - 147 Potassium 4.3 3.4 - 5.5 Chloride 100.0 99.0 - 108.0 Carbon Dioxide 30 mmol/L Anion Gap 10.3 <=30 MMOL/L Glucose 104 60 - 200 BUN 19 4 - 21 mg/dL Creatinine 1.17 0.60 - 1.30 mg/dL Total Protein 8.1 6.4 - 8.2 G/DL Albumin 5.1(A) 3.5 - 5.0 g/dL Calcium 9.7 8.7 - 10.7 mg/dL Phosphorus, Serum 3.6 eGFR Non-Afr Slovak >60 PTH 32.9 PG/ML Vitamin D, 25-OH, Total 18.5(L) ng/mL Hemoglobin A1C 5.8 4.0 - 6.0 Protein Urine Random 6 Creatinine, Urine Random 203.90 mg/dL Urine Protein/Creatini ne Ratio 0.0 mg/g creat Glucose, UA Negative mg/dL Bilirubin, UA Negative Ketones, UA Negative Urine Specific Bureau 1.022 Blood, UA Negative Joshua/ul pH, UA 6.5 Protein, UA 10 trace mg/dL Urobilinogen, UA Normal Nitrite, UA Negative Leukocytes, UA Negative WBC, Urine None Seen None Seen, Occasional, 0-2 /HPF RBC, Urine None Seen None Seen, Occasional /HPF Epithelial Cells in Urine None Seen /HPF Bacteria, Urine Occasional None Seen, Occasional /HPF Triglycerides 178(H) Cholesterol, Total 112(L) HDL 41 mg/dL LDL-Calculated 35 07/16/2024 [facility] Provider LAB BLOOD ORDERABLES Maida l Result from Last 3 Months Insurance MEDICARE [place]ICAID [place]
== END 2024-09-13 15:15 | disposition home or self-care (01) ==
PROVIDERS: Visit Provider Internal Medicine Critical Care Medicine
DX: Z12.2 Encounter for screening for malignant neoplasm of respiratory organs (principal); Z87.891 Personal history of nicotine dependence
CPT/HCPCS: 71271

== ENCOUNTER 2025-05-30 12:36 | Outpatient (CLI) | payer MEDICARE, MEDICAID, SELFPAY ==
--- OUTSIDE RECORDS SUMMARY | 2025-05-30 13:48 | XMS_ITS | Continuity of Care Document ---
Author Organization [facility] (Adult Med) Address [address] [place] [id number] Care Team Providers Care Acidizer Water Well Name Role Phone AUDRA MARR Psychiatrist Assessment No assessment recorded. Plan of Treatment Reminders Order Date Submit Date Provider Last Modified By Organization Details Last Modified Time Details Appointments ANY 15 2025 10:00A Kathleen Kaye MD Not available Not available Not available ANY 15 2025 02:00P Kathleen Kaey MD Not available Not available Not available Lab vitamin D, 25-hydrox y, total, serum 2024 025 [facility], [address] [place] [address], [facility] [address], [place], [address], 05/26/2025 09:17:13 CBC w/ auto diff 2024 025 [facility], [address] [place] [address], [facility] [address], [place], [address], 05/26/2025 09:17:13 lipid panel, serum 2024 025 [facility], [address] [place] [address], [facility] [address], [place], [address], 05/26/2025 09:17:11 urinalysi s macro (dipstick ) panel, urine 2024 025 [facility], [address] [place] [address], [facility] [address], [place], [address], 05/26/2025 09:17:12 HbA1c (hemoglob in A1c), blood 2024 [facility], [address], [address], [place], [address], 05/26/2025 09:17:12 HIV 1 + 2, meaningfu l use set 2024 [facility], [address], [address], [place], [address], 05/26/2025 09:17:14 Hepatitis C IgG Ab, qual, serum 2024 [facility], [address], [address], [place], [address], 05/26/2025 09:17:10 Referral pulmonolo gist referral 2024 ERICA Bucio MD, [address] [place], [address], 05/06/2025 15:31:24 Procedures None recorded. Surgeries None recorded. Imaging None recorded. Medication Orders Ventolin HFA 90 mcg/actua tion aerosol inhaler 2024 [facility] [address] [place], [address], 04/14/2025 20:15:30 Patient TargetsNo targets recorded. 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 Referral for C hronic obstructive pulmonary disease COPD Referring Physician: Sravan Kaye, Internal Medicine, Encounter Date: 04/14/2025 Problems Name Problem SNOMED Code Status Onset Date Resolution Date Notes Provider Name and Address Organization Details Recorded Time Gastroesophag eal reflux disease 001890691 Active Juaquin Silva PA-C Attn: Accountin g,[address] [facility], [place], [address], [place] [facility] 6 15:41:18 Hyperlipidemi a 07125835 Active Juaquin Silva PA-C Attn: Accountin g,[address] [facility], [place], [address], [place] [facility] 6 15:41:18 Anxiety 59110585 Active Juaquin Silva PA-C Attn: Accountin g,[address] [facility], [place], [address], [place] [facility] 6 15:41:18 Dental abscess 182781823 Active Juaquin Silva PA-C Attn: Accountin g,[address] [facility], [place], [address], [place] [facility] 6 16:43:09 Impotence Active 2016 Juaquin Silva PA-C Attn: Accountin g,[address] [facility], [place], [address], [place] [facility] 7 16:19:46 Family history of diabetes mellitus 697688234 Active 2016 Juaquin Silva PA-C Attn: Accountin g,[address] [facility], [place], [address], [place] [facility] 7 16:23:26 Melanocytic nevus 956145955 Active 2016 Juaquin Silva PA-C Attn: Accountin g,[address] [facility], [place], [address], [place] [facility] 7 16:26:56 Ingrowing nail 803398201 Active 2016 right second toe Juaquin Silva PA-C Attn: Accountin g,[address] [facility], [place], [address], [place] [facility] 2 14:17:59 Administratio n of influenza vaccine Active 2017 Juaquin Silva PA-C Attn: Angie g,[address] [facility], [place], [address], [place] [facility] 8 16:29:26 Essential hypertension 57664680 Active 2017 Juaquin Silva PA-C Attn: Angie g,[address] [facility], [place], [address], [place] [facility] 8 16:33:09 Acute bronchitis 52131507 Active 2017 Juaquin Silva PA-C Attn: Angie g,[address] [facility], [place], [address], [place] [facility] 8 15:42:40 Serum creatinine outside reference range 929864682 Active 2018 Juaquin Silva PA-C Attn: Angie g,[address] [facility], [place], [address], [place] [facility] 9 15:16:35 Constipation 77706095 Active 2018 Juaquin Silva PA-C Attn: Angie g,[address] [facility], [place], [address], [place] [facility] 9 16:10:36 Chronic obstructive pulmonary disease 44742631 Active 2018 see CXR 08/24/18 Juaquin Silva PA-C Attn: Accountin g,[address] [facility], [place], [address], [place] [facility] 9 23:28:23 Chronic kidney disease stage 2 349503036 Active 2018 Juaquin Silva PA-C Attn: Angie g,[address] [facility], [place], [address], [place] [facility] 9 10:33:51 Depressive disorder 53654542 Active 2018 Juaquin Silva PA-C Attn: Angie espinosa,[address] [facility], [place], [address], [place] [facility] 9 16:09:46 Blood in urine 99000771 Active 2018 Juaquin Silva PA-C Attn: Angie espinosa,[address] [facility], [place], [address], [place] [facility] 9 16:22:17 Overweight 975243419 Active 2018 Juaquin Silva PA-C Attn: Accountmihir g,[address] [facility], [place], [address], [place] [facility] 9 16:29:45 Testosterone level below reference range 998599836 Active 2019 Juaquin Silva PA-C Attn: Accountmihir g,[address] [facility], [place], [address], [place] [facility] 0 17:41:07 Obese 732239824 Active 2019 Juaquin Silva PA-C Attn: Accountmihir g,[address] [facility], [place], [address], [place] [facility] 0 16:22:25 Screening for malignant neoplasm of prostate Active 2020 Juaquin Silva PA-C Attn: Angie g,[address] [facility], [place], [address], [place] [facility] 1 14:22:21 Serum vitamin B12 borderline low 998192679 Active 2020 Juaquin Silva PA-C Attn: Accountin g,[address] [facility], [place], [address], [place] [facility] 1 22:22:21 Under immunized 610053064 Active 2020 Juaquin Silva PA-C Attn: Angie g,[address] [facility], [place], [address], [place] [facility] 1 17:15:06 Hemorrhoids 14996624 Active 2021 Juaquin Silva PA-C Attn: Angie francisca,[address] [facility], [place], [address], [place] [facility] 2 15:33:44 Screening for malignant neoplasm of colon Active 2021 Juaquin Silva PA-C Attn: Angie francisca,[address] [facility], [place], [address], [place] [facility] 2 15:35:12 Itching of skin 804567181 Active 2022 Meliza Garrido MD Attn: Angie espinosa,[address] [facility], [place], [address], [place] [facility] 3 15:44:37 Colorectal cancer detected by DNA-based stool screening 151972687 Active 2022 Meliza Garrido MD Attn: Angie espinosa,[address] [facility], [place], [address], [place] [facility] 3 20:02:32 History of polyp of colon 635754772 Active 2023 Meliza Garrido MD Attn: Angie espinosa,[address] [facility], [place], [address], [place] [facility] 4 17:22:04 Mass of scalp 901519078 Active 2023 Meliza Garrido MD Attn: Angie espinosa,[address] [facility], [place], [address], [place] [facility] 4 17:21:47 Hyperglycemia 24464221 Active 2024 Meliza Garrido MD Attn: Angie espinosa,[address] [facility], [place], [address], [place] [facility] 5 15:31:23 Toothache 57067453 Active 2024 Meliza Garrido MD Attn: Angie espinosa,[address] [facility], [place], [address], [place] [facility] 5 15:12:02 Tobacco dependence syndrome 35899903 Active 2024 Meliza Garrido MD Attn: Angie espinosa,[address] [facility], [place], [address], [facility] 5 16:49:29 Problem Notes None recorded. Medical Equipment None Reported. Allergies Allergen ID Allergen Name Allergen Category Reaction Reaction Severity Criticality Documentation Date Start Date Code Code System Note Provider Name and Address Organization Details Recorded Time 09915 Iodinated contrast media (substanc e) medicatio n Not available Not available Not available 09/26/2015 31877 2003 SNOMED Wandy Petty [facility] [place], [place] - [facility] 6 15:18:16 Medications Name Sig Start Date Stop Date Status Note LastModified by Organization Details LastModified Time Prescript ion - Renewal 07/26 completed Not Available Not Available Not Available losartan 50 mg tablet Take 1 tablet every day by oral route in the morning for 30 days. 05/15 completed Not Available Not Available Not Available amoxicill in 500 mg capsule TAKE 1 CAPSULE BY MOUTH THREE TIMES DAILY FOR 5 DAYS 12/06 completed Not Available Not Available Not Available atorvasta tin 40 mg tablet TAKE 1 TABLET BY MOUTH ONCE DAILY active Not Available Not Available No t Available bupropion HCl SR 150 mg tablet,12 hr sustained -release TAKE 1 TABLET BY MOUTH TWICE DAILY 04/14 completed Not Available Not Available Not Available promethaz ine-DM 6.25 mg-15 mg/5 mL [...] completed Not Available Not Available Not Available acetamino phen 300 mg-codein e 15 mg tablet TAKE 1 TABLET BY MOUTH EVERY 6 TO 8 HOURS NEEDED FOR PAIN 12/06 completed Not Available Not Available Not Available amlodipin e 2.5 mg tablet TAKE 1 TABLET BY MOUTH ONCE DAILY IN THE MORNING 07/26 completed Not Available Not Available Not Available ciproflox acin 500 mg tablet Take 1 tablet every 12 hours by oral route for 10 days. 07/02 completed Not Available Not Available Not Available tramadol 50 mg tablet TAKE 1 TABLET BY MOUTH THREE TIMES DAILY NEEDED 04/14 completed Not Available Not Available Not Available sildenafi l 100 mg tablet Take 1 TABLET BY MOUTH 1 HOUR PRIOR TO SEXUAL ACTIVITY DIRECTED , NOT TO EXCEED 1 IN 24 HOURS.. MUST LAST 30 DAYS active Not Available Not Available No t [...] completed Not Available Not Available Not Available nicotine 21 mg/24 hr daily transderm al patch Apply 1 patch every day by transder mal route. 04/14 completed Not Available Not Available Not Available docusate sodium 100 mg capsule Take 1 capsule twice a day by oral route for 30 days. 09/16 completed Not Available Not Available Not Available omeprazol e 20 mg capsule,d elayed release TAKE 1 CAPSULE BY MOUTH TWICE DAILY BEFORE MEAL(S) active Not Available Not Available No t Available trifluope razine 10 mg tablet 07/02 completed [...] inhaler INHALE 2 PUFFS BY MOUTH EVERY 6 HOURS NEEDED active Not Available Not Available No t Available hydroxyzi ne pamoate 25 mg capsule Take 1 capsule 3 times a day by oral route as needed for 30 days. 07/02 completed Not Available Not Available Not Available ezetimibe 10 mg tablet Take 1 tablet by mouth once daily 2024 active Not Available Not Available Not Avai lable bupropion HCl XL 300 mg 24 hr [...] capsules Inhale 1 capsule by inhalati on route for 30 days. 2024 active Not Available Not Available Not Avai lable omega-3 acid ethyl esters 1 gram capsule Take by oral route for 30 days. 12/06 completed Not Available Not Available Not Available chlorhexi dine gluconate 0.12 % mouthwash RINSE MOUTH WITH 15ML TWICE DAILY AFTER BREAKFAS T AND AFTER DINNER 04/14 completed Not Available Not Available Not Available [...] 2.5 mcg/actua tion solution for inhalatio n Inhale 2 puff(s) every day by inhalati on route for 30 days. 04/14 completed Not Available Not Available Not Available Wixela Inhub 250 mcg-50 mcg/dose powder for inhalatio n Inhale 1 puff twice a day by inhalati on route. 07/26 completed Not Available Not Available Not Available Breyna 160 mcg-4.5 mcg/actua tion HFA aerosol inhaler INHALE 2 PUFFS BY MOUTH TWICE DAILY active Not Available Not Available No t Available Vitals Date Recorded Body height Body mass index (BMI) Body weight Oxygen saturation Heart rate Body temperature Respiratory rate Systolic And Diastolic Provider Name and Address Organization Details Last Updated DateTime 5 177.8 cm 29.6 kg/m2 05674.0 3 g 95 % 87 /min 97.5 [degF] 17 /min 110/80 mm[Hg] Kristin Holm MA [facility] 5 13:57:17 Social History Question Answer Notes LastModified by Organizat ion Details LastModified Time Tobacco Smoking Status Current Every Day Smoker Staci Mc MA [facility] 08/03/2018 15:45:23 Do You Have An Advance Directive? No Information n ot available 09/05/2022 Are You Blind Or Do You Have Difficulty Seeing? No Information n ot available 10/12/2020 What Is Your Level Of Caffeine Consumption? Moderate Information not available 10/12/2020 In The 14 Days Before Symptom Onset, Have You Had Close Contact With A Laboratory-confirm ed COVID-19 While That Case Was Ill? No Information n ot available 09/05/2022 In The 14 Days Before Symptom Onset, Have You Had Close Contact With A Person Who Is Under Investigation For COVID-19 While That Person Was Ill? No Information not available 09/05/2022 Have You Been To An Area Known To Be High Risk For COVID-19? No Information not available 09/05/2022 Are You Deaf Or Do You Have Serious Difficulty Hearing? No Information not available 10/12/2020 What Type Of Diet Are You Following? REGULAR Information n ot available 10/12/2020 Do You Have A Medical Power Of Public Records Officer? No Information not available 09/05/2022 What Was The Date Of Your Most Recent Tobacco Screening? 04/14/2025 Information not available 04/14/2025 What Is Your Current Pack Years? 30ormorepacky ears Information not available 04/14/2025 What Is Your Relationship Status? Single Information not available 10/12/2020 Do You Use Your Seat Belt Or Car Seat Routinely? Yes Information not available 10/12/2020 Are You Sexually Active? No Information not available 10/12/2020 Do You Have Smoke And Carbon Monoxide Detectors In Your Home? No Information not available 10/12/2020 At What Age Did You Start Smoking Tobacco? 12 Information not available 04/14/2025 Are You Passively Exposed To Smoke? No Information no t available 10/12/2020 How Much Tobacco Do You Smoke? 2 PPD Information not available 10/12/2020 Do You Use Sunscreen Routinely? Yes Information not available 10/12/2020 Has Tobacco Cessation Counseling Been Provided? Yes Information not available 02/09/2021 On What Date Was Tobacco Cessation Counseling Provided? 04/14/2025 Information not available 04/14/2025 How Many Years Have You Smoked Tobacco? 42 Information not available 04/14/2025 Sex: Male Functional Status Question Answer Note LastModified by Organizat ion Details LastModified Time Do you use any illicit or recreational drugs? Yes Marijuana Information not available 04/14/2025 Do you or have you ever used any other forms of tobacco or nicotine? No Information not available 11/14/2022 What is your level of alcohol consumption? None Information not available 10/12/2020 Are you currently employed? No Information not available 10/12/2020 Are you able to care for yourself independently? Yes Information not available 10/12/2020 What is your exercise level? None Information not available 10/12/2020 Mental Status Question Answer Note LastModified by Organization D etails LastModified Time Do you feel stressed (tense, restless, nervous, or anxious, or unable to sleep at night)? NJ4438-5 Information not available 10/12/2020 Family History Relationship Description Onset Age of this Age Resolved Age Notes LastModified by Organization Details LastModified Time Father Hypercholest erolemia mnelsonma Not available 2015 15:19:52 Father Diabetes mellitus mnelsonma Not available 2015 15:19:52 Brother Diabetes mellitus mnelsonma Not available 2015 15:19:52 Medical History Condition Response Anxiety Disorder Y High Blood Pressure Y Acid Reflux (GERD) Y High Cholesterol Y Immunizations Vaccine Type Date Status Note Provider Corky woods and Address Organization Details Recorded Time SARS-COV-2 (COVID-19) vaccine, UNSPECIFIED 1 completed Juaquin Silva PA-C Attn: Accounting,[address] [facility], [place], [address], [place] [facility] 10/12/2020 17:13:49 COVID-19, mRNA, LNP-S, PF, 30 mcg/0.3 mL dose 1 completed Tarik Coleman null, [place] [facility] 12/29/2020 16:05:21 zoster recombinant 1 completed Analisa Smith LPN [place], [place] [facility] 02/13/2021 09:34:38 Tdap 7 completed Not Available [facility] 07/17/2019 02:33:24 Influenza, split virus, quadrivalent, PF 4 completed Fay Theodore RN null, [place] [facility] 08/11/2024 16:45:43 Influenza, split virus, trivalent, preservative 4 completed Not Available [facility] 04/14/2025 13:47:55 Influenza, split virus, trivalent, PF 5 completed Not Available [facility] 04/14/2025 13:47:55 Influenza, split virus, quadrivalent, PF 9 completed Not Available [facility] 04/14/2025 13:47:55 zoster recombinant 1 completed Not Available [facility] 04/14/2025 13:47:55 Influenza, recombinant, quadrivalent, PF 2 completed Not Available [facility] 04/14/2025 13:47:55 COVID-19, mRNA, LNP-S, bivalent, PF, 50 mcg/0.5 mL or 25mcg/0.25 mL dose 2 completed Not Available [facility] 04/14/2025 13:47:55 Influenza, recombinant, quadrivalent, PF 3 completed Not Available [facility] 04/14/2025 13:47:55 COVID-19, mRNA, LNP-S, PF, 50 mcg/0.5 mL 3 completed Not Available [facility] 04/14/2025 13:47:55 COVID-19, mRNA, LNP-S, PF, 50 mcg/0.5 mL 4 completed Not Available [facility] 04/14/2025 13:47:55 Influenza, split virus, quadrivalent, preservative 7 completed Not Available [facility] 07/17/2019 02:39:18 influenza, unspecified formulation 5 completed Fay Theodore RN [place], [place] [facility] 05/03/2025 15:54:10 Influenza, split virus, quadrivalent, PF 8 completed Not Available [facility] 07/17/2019 02:36:31 Influenza, split virus, quadrivalent, preservative 0 completed Ronel Bour[place], [place] [facility] 06/06/2020 17:08:14 Influenza, split virus, quadrivalent, preservative 1 completed Ronel Bour[place] [facility] 04/10/2021 15:20:15 Pneumococcal conjugate PCV20, polysaccharide LGL677 conjugate, adjuvant, PF 5 completed Yuli[place], [place] [facility] 04/14/2025 14:54:56 Past Encounters Encounter ID Performer Location Encounter Start Date Encounter Closed Date Diagnosis/Indication Diagnosis SNOMED-CT Code Diagnosis ICD10 Code Diagnosis IMO Codes Diagnosis Note [id number] Sravan Kaye MD [facility] (Adult Med) [facility] [place] [address] 04/14/2025 13:45:08 04/18/2025 12:11:46 Chronic obstructive pulmonary disease 78835452 J44.9 Adult [facility] th examination 814800612 Z00.01 0084475 Pneumococc al vaccination given 652807327 Z23 1271290051 Impaired f asting glycemia 614266719 R73.01 002807 Viral scre ening status 258756516 Z11.59 767739 Screening for disorder 342344970 Z13.21 80090109 Health Concerns Section Related Observation LastModified by Organization Detai ls LastModified Time None Recorded Concern Status LastModified by Organization Details LastModified Time None Recorded Payers Encounter Date Sequence Insurance Name Policy Number Policy Perales Covered Member ID Perales Member ID Guarantor Name 04/14/2025 1 [place] Esa Augustina Markham [id number] Esa Markham 04/14/2025 2 [place] Esa Rashi [id number] Esa Markham Notes Date Note Type Note Provider Name and Address Organization Details Recorded Time 04/14/2025 text/html ROS as noted in the HPI Check upI need a new lung doctor 54 y/o WM who is here to establish care, he needs a new photogrammetric tech that is closer to where he lives. PMHX COPD, BPAD, GERD, HLD and Nicotine addiction. Sravan Kaye MD Attn: [address]ing,[address] [facility], [place], [address], [facility] 04/14/2025 18:37:43
--- OUTSIDE RECORDS SUMMARY | 2025-05-30 13:48 | XMS_ITS | Data Portability ---
[facility] Address [address] [place] [address] Care Team Providers Care Assistant Housekeeping Manager Name Role Phone AUDRA MARR Psychiatrist Assessment No assessment recorded. Plan of Treatment Reminders Order Date Submit Date Provider Last Modified By Organization Details Last Modified Time Details Appointments ANY 15 2025 10:00A Kathleen Kaye MD Not available Not available Not available ANY 15 2025 02:00P Kathleen Kaye MD Not available Not available Not available Lab vitami n D, 25-hyd anabell, total, serum 2024 025 [facility], [address] [place] [address], [facility], [place], [address], 05/26/2025 09:17:13 CBC w/ auto diff 2024 025 [facility], [address] [place] [address], [facility], [place], [address], 05/26/2025 09:17:13 lipid panel, serum 2024 025 [facility], [address] [place] [address], [facility], [place], [address], 05/26/2025 09:17:11 urinal ysis macro (dipst ick) panel, urine 2024 025 [facility], [address] [place] [address], [facility], [place], [address], 05/26/2025 09:17:12 HbA1c (hemog lobin A1c), blood 2024 025 [facility], [address], [address], [place], [address], 05/26/2025 09:17:12 HIV 1 + 2, meanin gful use set 2024 025 [facility], [address], [address], [place], [address], 05/26/2025 09:17:14 Hepati tis C IgG Ab, qual, serum 2024 025 [facility], [address], [address], [place], [address], 05/26/2025 09:17:10 HbA1c (hemog lobin A1c), blood 2024 025 [facility], [address], [address], [place], [address], 07/27/2024 13:14:09 PSA, total, serum or plasma 2024 025 [facility], [address], [address], [place], [address], 07/27/2024 13:14:10 lipid panel, serum 2024 025 [facility], [address], [address], [place], [address], 07/27/2024 13:14:06 BMP, serum or plasma 2024 025 [facility], [address], [address], [place], [address], 07/27/2024 13:14:07 Referral pulmon ologis t referr al 2024 ERICA Bucio MD, [address] [place], [address], 05/06/2025 15:31:24 Procedures None record ed. Surgeries None record ed. Imaging LDCT, chest, for lung cancer screen ing 2023 024 [facility], [address] [place] [address], [address], 11/10/2024 15:25:31 LDCT, chest, for lung cancer screen ing 2023 024 [facility], [address] [place] [address], [address], 11/10/2024 15:25:31 PFT, comple te 2023 024 [facility], [address] [place] [address], [address], 09/12/2024 05:01:13 Medication Orders Ventol in HFA 90 mcg/ac tuatio n aeroso l inhale r 2024 [facility] [address] [place], [address], 04/14/2025 20:15:30 buprop ion HCl SR 150 mg tablet ,12 hr sustai susannah-re lease 2024 [facility] [address] [place], [address], 04/14/2025 14:00:54 nicoti ne 21 mg/24 hr daily transd ermal patch 2024 025 [facility] [address] [place], [address], 04/14/2025 14:00:55 omepra zole 20 mg capsul efabyd releas e 2024 025 [facility] [address] [place], [address], 12/06/2024 16:47:57 losart an 100 mg tablet 2024 025 [facility] [address] [place], [address], 12/06/2024 16:47:56 atorva statin 40 mg tablet 2024 025 [facility] [address] [place], [address], 12/06/2024 16:47:58 silden afil 100 mg tablet 2024 025 [facility], [address] [place] [address], [id number], 12/06/2024 17:16:09 albute rol sulfat e 2.5 mg/3 mL (0.083 %) soluti on for nebuli zation 2023 024 [facility] [address] [place], [address], 05/26/2024 13:12:48 Spiriv a with HandiH aler 18 mcg and inhala tion capsul es 2023 025 [facility] [address] [place], [address], 07/26/2024 15:09:12 Ventol in HFA 90 mcg/ac tuatio n aeroso l inhale r 2023 024 [facility] [address] [place], [address], 05/19/2024 15:40:03 Wixela Inhub 250 mcg-50 mcg/do se powder for inhala tion 2023 025 [facility] [address] [place], [address], 07/26/2024 15:09:19 Wixela Inhub 250 mcg-50 mcg/do se powder for inhala tion 2023 024 [facility] [address] [place], [address], 07/26/2024 15:08:53 Spiriv a with HandiH aler 18 mcg and inhala tion capsul es 2023 024 [facility] [address] [place], [address], 07/26/2024 15:08:37 Patient TargetsNo targets recorded. Patient Instructions Encounter Date Encounter Id Patient Instructions Last Modified By Organization Details Last Modified Time 07/26/2024 [id number] learning about high blood sugar [email or web address] Not available 07/26/2024 15:32:19 learning about high blood pressure [email or web address] Not available 07/26/2024 15:29:43 high cholesterol : care instructions [email or web address] Not available 07/26/2024 15:29:43 chronic obstructive pulmonary disease (COPD): care instructions [email or web address] Not available 07/26/2024 15:29:43 learning about copd and how to prevent lung infections [email or web address] Not available 07/26/2024 15:29:43 12/06/2024 [id number] deciding about using medicines to quit smoking [email or web address] Not available 12/06/2024 16:54:25 Quitting Tobacco : Care Instructions [email or web address] Not available 12/06/2024 16:54:25 04/14/2025 [id number] prediabetes: car e instructions [email or web address] Not available 04/14/2025 14:14:51 Colonoscopy report from [facility] Pulmonology Shingrix at his local pharmacy Follow up in 6 months and PRN [email or web address] Not available 04/14/2025 14:16:20 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 Referral for C hronic obstructive pulmonary disease COPD Referring Physician: Sravan Kaye, Internal Medicine, Encounter Date: 04/14/2025 Results Created Date Observation Date Name Description Value Unit Range Abnormal Flag Note LastModifiedBy Organization Detail LastModifiedTime 02/06/20 24 02/07/2024 LIPID PANEL cholesterol, total 99 mg/dL 100-19 9 below low normal Not Available [facility] ([facility]) [address] [place], [address], 02/07/2024 06:19:17 02/06/20 24 02/07/2024 LIPID PANEL triglyceride s 108 mg/dL 0-149 Not Available [facility] ([facility]) [address] [place], [address], 02/07/2024 06:19:17 02/06/20 24 02/07/2024 LIPID PANEL HDL cholesterol 40 mg/dL >39 Not Available [facility] ([facility]) [address] [place], [address], 02/07/2024 06:19:17 02/06/20 24 02/07/2024 LIPID PANEL VLDL cholesterol pau 20 mg/dL 5-40 Not Available [facility] ([facility]) [address] [place], [address], 02/07/2024 06:19:17 02/06/20 24 02/07/2024 LIPID PANEL LDL chol calc ([facility]) 39 mg/dL 0-99 Not Available [facility] ([facility]) [address] [place], [address], 02/07/2024 06:19:17 02/06/20 24 02/07/2024 COMP. METAB OLIC PANEL (14) glucose 100 mg/dL 70-99 above high normal Not Available [facility] ([facility]) [address] [place], [address], 02/07/2024 06:19:18 02/06/20 24 02/07/2024 COMP. METAB OLIC PANEL (14) BUN 17 mg/dL 6-24 Not Available [facility] ([facility]) [address] [facility] [place], [address], 02/07/2024 06:19:18 02/06/20 24 02/07/2024 COMP. METAB OLIC PANEL (14) creatinine 1.20 mg/dL 0.76-1 .27 Not Available [facility] ([facility]) [address] [facility], [place], [address], 02/07/2024 06:19:18 02/06/20 24 02/07/2024 COMP. METAB OLIC PANEL (14) eGFR 73 mL/mi n/1.7 3 >59 Not Available [facility] ([facility]) [address] [facility], [place], [address], 02/07/2024 06:19:18 02/06/20 24 02/07/2024 COMP. METAB OLIC PANEL (14) BUN/creatini ne ratio 14 9-20 Not Available [facility] ([facility]) [address] [facility], [place], [address], 02/07/2024 06:19:18 02/06/20 24 02/07/2024 COMP. METAB OLIC PANEL (14) sodium 139 mmol/ L 134-14 4 Not Available [facility] ([facility]) [address] [facility] [place], [address], 02/07/2024 06:19:18 02/06/20 24 02/07/2024 COMP. METAB OLIC PANEL (14) potassium 4.3 mmol/ L 3.5-5. 2 Not Available [facility] ([facility]) [address] [place], [address], 02/07/2024 06:19:18 02/06/20 24 02/07/2024 COMP. METAB OLIC PANEL (14) chloride 100 mmol/ L 96-106 Not Available [facility] ([facility]) [address] [place], [address], 02/07/2024 06:19:18 02/06/20 24 02/07/2024 COMP. METAB OLIC PANEL (14) carbon dioxide, total 26 mmol/ L 20- Not Available [facility] ([facility]) [address] [place], [address], 02/07/2024 06:19:18 02/06/20 24 02/07/2024 COMP. METAB OLIC PANEL (14) calcium 9.1 mg/dL 8.7-10 .2 Not Available [facility] ([facility]) [address] [place], [address], 02/07/2024 06:19:18 02/06/20 24 02/07/2024 COMP. METAB OLIC PANEL (14) protein, total 6.9 g/dL 6.0-8. 5 Not Available [facility] ([facility]) [address] [place], [address], 02/07/2024 06:19:18 02/06/20 24 02/07/2024 COMP. METAB OLIC PANEL (14) albumin 4.3 g/dL 3.8-4. 9 Not Available [facility] ([facility]) [address] [place], [address], 02/07/2024 06:19:18 02/06/20 24 02/07/2024 COMP. METAB OLIC PANEL (14) globulin, total 2.6 g/dL 1.5-4. 5 Not Available [facility] ([facility]) [address] [place], [address], 02/07/2024 06:19:18 02/06/20 24 02/07/2024 COMP. METAB OLIC PANEL (14) bilirubin, total 0.3 mg/dL 0.0-1. 2 Not Available [facility] ([facility]) [address] [place], [address], 02/07/2024 06:19:18 02/06/20 24 02/07/2024 COMP. METAB OLIC PANEL (14) alkaline phosphatase 82 IU/L 44-121 Not Available [facility] ([facility]) [address] [facility], [place], [address], 02/07/2024 06:19:18 02/06/20 24 02/07/2024 COMP. METAB OLIC PANEL (14) AST (SGOT) 18 IU/L 0-40 Not Available [facility] ([facility]) [address] [facility], [place], [address], 02/07/2024 06:19:18 02/06/20 24 02/07/2024 COMP. METAB OLIC PANEL (14) ALT (SGPT) 21 IU/L 0-44 Not Available [facility] ([facility]) [address] [facility], [place], [address], 02/07/2024 06:19:18 02/06/20 24 02/07/2024 TSH RFX ON ABNOR MAL TO FREE T4 TSH 1.350 uIU/m L 0.450- 4.500 Not Available [facility] ([facility]) [address] [facility], [place], [address], 02/07/2024 06:19:18 02/06/20 24 02/06/2024 ABN OPTIO [...] neces ya follo w-up. Not Available [facility] ([facility]) [address] [place], [address], 02/07/2024 06:19:19 02/06/2002/06/2024 CBC, PLATE LET, NO DIFFE RENTI AL WBC 6.2 x10e3 /uL 3.4-10 .8 Not Available [facility] ([facility]) [address] [facility], [place], [address], 02/07/2024 06:19:19 02/06/2002/06/2024 CBC, PLATE LET, NO DIFFE RENTI AL RBC 4.87 x10e6 /uL 4.14-5 .80 Not Available [facility] ([facility]) [address] [facility], [place], [address], 02/07/2024 06:19:19 02/06/2002/06/2024 CBC, PLATE LET, NO DIFFE RENTI AL hemoglobin 14.6 g/dL 13.0-1 7.7 Not Available [facility] ([facility]) [address] [facility], [place], [address], 02/07/2024 06:19:19 02/06/2002/06/2024 CBC, PLATE LET, NO DIFFE RENTI AL hematocrit 43.5 % 37.5-5 1.0 Not Available [facility] ([facility]) [address] [facility], [place], [address], 02/07/2024 06:19:19 02/06/2002/06/2024 CBC, PLATE LET, NO DIFFE RENTI AL MCV 89 fL 79-97 Not Available [facility] ([facility]) [address] [place], [address], 02/07/2024 06:19:19 02/06/2002/06/2024 CBC, PLATE LET, NO DIFFE RENTI AL MCH 30.0 pg 26.6-3 3.0 Not Available [facility] ([facility]) [address] [place], [address], 02/07/2024 06:19:19 02/06/2002/06/2024 CBC, PLATE LET, NO DIFFE RENTI AL MCHC 33.6 g/dL 31.5-3 5.7 Not Available [facility] ([facility]) [address] [facility], [place], [address], 02/07/2024 06:19:19 02/06/20 24 02/06/2024 CBC, PLATE LET, NO DIFFE RENTI AL RDW 12.6 % 11.6-1 5.4 Not Available [facility] ([facility]) [address] [facility], [place], [address], 02/07/2024 06:19:19 02/06/20 24 02/06/2024 CBC, PLATE LET, NO DIFFE RENTI AL platelets 193 x10e3 /uL 150-45 0 Not Available [facility] ([facility]) [address] [facility], [place], [address], 02/07/2024 06:19:19 07/26/19 25 07/27/2024 LIPID PANEL cholesterol, total 100 mg/dL 100-19 9 Not Available [facility] ([facility]) [address] [place], [address], 07/27/2024 13:14:06 07/26/19 25 07/27/2024 LIPID PANEL triglyceride s 137 mg/dL 0-149 Not Available [facility] ([facility]) [address] [place], [address], 07/27/2024 13:14:06 07/26/19 25 07/27/2024 LIPID PANEL HDL cholesterol 37 mg/dL >39 below low normal Not Available [facility] ([facility]) [address] [place], [address], 07/27/2024 13:14:06 07/26/19 25 07/27/2024 LIPID PANEL VLDL cholesterol pau 24 mg/dL 5-40 Not Available [facility] ([facility]) [address] [place], [address], 07/27/2024 13:14:06 07/26/19 25 07/27/2024 LIPID PANEL LDL chol calc ([facility]) 39 mg/dL 0-99 Not Available [facility] ([facility]) [address] [place], [address], 07/27/2024 13:14:06 07/26/19 25 07/27/2024 BASIC METAB OLIC PANEL (8) glucose 83 mg/dL 70-99 Not Available [facility] ([facility]) [address] [place], [address], 07/27/2024 13:14:07 07/26/19 25 07/27/2024 BASIC METAB OLIC PANEL (8) BUN 12 mg/dL 6-24 Not Available [facility] ([facility]) [address] [place], [address], 07/27/2024 13:14:07 07/26/19 25 07/27/2024 BASIC METAB OLIC PANEL (8) creatinine 1.17 mg/dL 0.76-1 .27 Not Available [facility] ([facility]) [address] [place], [address], 07/27/2024 13:14:07 07/26/19 25 07/27/2024 BASIC METAB OLIC PANEL (8) eGFR 75 mL/mi n/1.7 3 >59 Not Available [facility] ([facility]) [address] [place], [address], 07/27/2024 13:14:07 07/26/19 25 07/27/2024 BASIC METAB OLIC PANEL (8) BUN/creatini ne ratio 10 9-20 Not Available [facility] ([facility]) [address] [place], [address], 07/27/2024 13:14:07 07/26/19 25 07/27/2024 BASIC METAB OLIC PANEL (8) sodium 136 mmol/ L 134-14 4 Not Available [facility] ([facility]) [address] [facility] [place], [address], 07/27/2024 13:14:07 07/26/19 25 07/27/2024 BASIC METAB OLIC PANEL (8) potassium 4.3 mmol/ L 3.5-5. 2 Not Available [facility] ([facility]) [address] [place], [address], 07/27/2024 13:14:07 07/26/1907/27/2024 BASIC METAB OLIC PANEL (8) chloride 97 mmol/ L 96-106 Not Available [facility] ([facility]) [address] [facility] [place], [address], 07/27/2024 13:14:07 07/26/1907/27/2024 BASIC METAB OLIC PANEL (8) carbon dioxide, total 22 mmol/ L 20-29 Not Available [facility] ([facility]) [address] [place], [address], 07/27/2024 13:14:07 07/26/1907/27/2024 BASIC METAB OLIC PANEL (8) calcium 9.5 mg/dL 8.7-10 .2 Not Available [facility] ([facility]) [address] [place], [address], 07/27/2024 13:14:07 07/26/1907/27/2024 HEMOG LOBIN A1C hemoglobin A1C 6.1 % 4.8-5. 6 above high normal Predi abete s: 5.7 - 6.4 Diabe blue: >6.4 Glyce jimbo contr ol for adult s with diabe blue: <7.0 Not Available [facility] ([facility]) [address] [place], [address], 07/27/2024 13:14:09 01/27/20 25 07/27/2024 PROST ATE-S PECIF IC AG [...] t be inter prete d as absol algaaciq evide nce of the prese nce or absen ce of moon valdivia se. Not Available [facility] ([facility]) [address] [place], [address], 07/27/2024 13:14:10 05/25/2005/26/2025 MICRO SCOPI C EXAMI NATIO N WBC None seen /hpf 0-5 Not Available [facility] ([facility]) [address] [place], [address], 05/26/2025 09:17:11 05/25/20 25 05/26/2025 MICRO SCOPI C EXAMI NATIO N RBC 3-10 /hpf 0-2 abnormal Not Available [facility] ([facility]) [address] [place], [address], 05/26/2025 09:17:11 05/25/20 25 05/26/2025 MICRO SCOPI C EXAMI NATIO N epithelial cells (non renal) None seen /hpf 0-10 Not Available [facility] ([facility]) [address] [place], [address], 05/26/2025 09:17:11 05/25/20 25 05/26/2025 MICRO SCOPI C EXAMI NATIO N casts None seen /lpf nonese en Not Available [facility] ([facility]) [address] [facility], [place], [address], 05/26/2025 09:17:11 05/25/20 25 05/26/2025 MICRO SCOPI C EXAMI NATIO N bacteria None seen nonese en/few Not Available [facility] ([facility]) [address] [facility], [place], [address], 05/26/2025 09:17:11 04/01/20 24 04/07/2023 home sleep study No observ ation record ed. BARCODE Not Available 2023 16:03:14 06/04/20 24 02/27/2024 [facility] hodil ation No observ ation record ed. [email or web address] Not Available 06/16 10:14:45 09/15/19 25 09/13/2024 LDCT, chest , for lung cance r scree elsa No observ ation record ed. [address], [place], [address], 11/10/2024 15:25:09 09/15/19 25 09/13/2024 CT, chest , w/ contr ast No observ ation record ed. [address], [place], [address], 09/21/2024 22:55:50 Result Notes None recorded. Problems Name Problem SNOMED Code Status Onset Date Resolution Date Notes Provider Name and Address Organization Details Recorded Time Gastroesophag eal reflux disease 123649238 Active Edallison Silva PA-C Attn: Angie espinosa,[address] [facility], [place], [address], [facility] 6 15:41:18 Hyperlipidemi a 87813008 Active Edallison Silva PA-C Attn: Angie espinosa,[address] [facility], [place], [address], [facility] 6 15:41:18 Anxiety 52769074 Active Juaquin Silva PA-C Attn: Accountin g,[address] [facility], [place], [address], [place] [facility] 6 15:41:18 Dental abscess 807431394 Active Juaquin Silva PA-C Attn: Accountin g,[address] [facility], [place], [address], [place] [facility] 6 16:43:09 Impotence Active 2016 Juaquin Silva PA-C Attn: Accountin g,[address] [facility], [place], [address], [place] [facility] 7 16:19:46 Family history of diabetes mellitus 008112972 Active 2016 Juaquin Silva PA-C Attn: Accountin g,[address] [facility], [place], [address], [place] [facility] 7 16:23:26 Melanocytic nevus 337634081 Active 2016 Juaquni Silva PA-C Attn: Accountmihir g,[address] [facility], [place], [address], [place] [facility] 7 16:26:56 Ingrowing nail 657402625 Active 2016 right second toe Juaquin Silva PA-C Attn: Accountmihir g,[address] [facility], [place], [address], [place] [facility] 2 14:17:59 Administratio n of influenza vaccine Active 2017 Juaquin Silva PA-C Attn: Accountin g,[address] [facility], [place], [address], [place] [facility] 8 16:29:26 Essential hypertension 09956396 Active 2017 Juaquin Silva PA-C Attn: Accountin g,[address] [facility], [place], [address], [place] [facility] 8 16:33:09 Acute bronchitis 50188941 Active 2017 Juaquin Silva PA-C Attn: Angie g,[address] [facility], [place], [address], [place] [facility] 8 15:42:40 Serum creatinine outside reference range 810337483 Active 2018 Juaquin Silva PA-C Attn: Angie g,[address] [facility], [place], [address], [place] [facility] 9 15:16:35 Constipation 95940077 Active 2018 Juaquin Silva PA-C Attn: Angie g,[address] [facility], [place], [address], [place] [facility] 9 16:10:36 Chronic obstructive pulmonary disease 16336469 Active 2018 see CXR 08/24/18 Juaquin Silva PA-C Attn: Angie espinosa,[address] [facility], [place], [address], [place] [facility] 9 23:28:23 Chronic kidney disease stage 2 127677512 Active 2018 Juaquin Silva PA-C Attn: Angie espinosa,[address] [facility], [place], [address], [place] [facility] 9 10:33:51 Depressive disorder 97455453 Active 2018 Juaquin Silva PA-C Attn: Angie espinosa,[address] [facility], [place], [address], [place] [facility] 9 16:09:46 Blood in urine 64044499 Active 2018 Juaquin Silva PA-C Attn: Angie g,[address] [facility], [place], [address], [place] [facility] 9 16:22:17 Overweight 835299466 Active 2018 Juaquin Silva PA-C Attn: Angie g,[address] [facility], [place], [address], [place] [facility] 9 16:29:45 Testosterone level below reference range 355916791 Active 2019 Juaquin Silva PA-C Attn: Angie espinosa,[address] [facility], [place], [place], [address] [place] [address] 2, [place] [facility] 0 17:41:07 Obese 247292190 Active 2019 Juaquin Silva PA-C Attn: Accountmihir espinosa,[address] [facility], [place], [address] [place] [address] 2, [place] [facility] 0 16:22:25 Screening for malignant neoplasm of prostate Active 2020 Juaquin Silva PA-C Attn: Accountmihir espinosa,[address] [place], [place], [address] [place] [address] 2, [place] [facility] 1 14:22:21 Serum vitamin B12 borderline low 225877937 Active 2020 Juaquin Silva PA-C Attn: Accountin g,[address] [facility], [place], [address] [place] [address] 2, [place] [facility] 1 22:22:21 Under immunized 504183571 Active 2020 Juaquin Silva PA-C Attn: Accountmihir g,[address] [facility], [place], [place], [address] [place] [address] 2, [place] [facility] 1 17:15:06 Hemorrhoids 46064646 Active 2021 Juaquin Silva PA-C Attn: Accountin g,[address] [facility], [place], [place], [address] [place] [address] 2, [place] [facility] 2 15:33:44 Screening for malignant neoplasm of colon Active 2021 Juaquin Silva PA-C Attn: Accountin g,[address] [place], [place], [address] [place] [address] 2, [place] [facility] 2 15:35:12 Itching of skin 181696286 Active 2022 Meliza Garrido MD Attn: Accountin g,[address] [place], [address] [place] [address] 2, [place] [facility] 3 15:44:37 Colorectal cancer detected by DNA-based stool screening 884104971 Active 2022 Meliza Garrido MD Attn: Angie espinosa,[address] [facility], [place], [address], [place] [facility] 3 20:02:32 History of polyp of colon 579112925 Active 2023 Meliza Garrido MD Attn: Angie espinosa,[address] [facility], [place], [address], [place] [facility] 4 17:22:04 Mass of scalp 935595350 Active 2023 Meliza Garrido MD Attn: nAgie espinosa,[address] [place], [address], [place] [facility] 4 17:21:47 Hyperglycemia 03195820 Active 2024 Meliza Garrido MD Attn: Angie espinosa,[address] [facility], [place], [address], [place] [facility] 5 15:31:23 Toothache 33609807 Active 2024 Meliza Garrido MD Attn: Angie espinosa,[address] [place], [address], [place] [facility] 5 15:12:02 Tobacco dependence syndrome 60562550 Active 2024 Meliza Garrido MD Attn: Isaimihir espinosa,[address] [facility], [place], [address], [place] [facility] 5 16:49:29 Problem Notes None recorded. Medical Equipment None Reported. Allergies Allergen ID Allergen Name Allergen Category Reaction Reaction Severity Criticality Documentation Date Start Date Code Code System Note Provider Name and Address Organization Details Recorded Time 73251 Iodinated contrast media (substanc e) medicatio n Not available Not available Not available 09/26/2015 [id number] SNOMED Wandy Petty MA null, [place] - [facility] 6 15:18:16 Medications Name Sig Start Date [...] (BMI) Body weight Heart rate Oxygen saturation Systolic And Diastolic Provider Name and Address Organization Details Last Updated DateTime 5 177.8 cm 29.1 kg/m2 42720.3 9 g 97 /min 96 % 111/80 mm[Hg] Janusz Silva MA [facility] 5 15:14:15 Date Recorded Body height Body mass index (BMI) Body weight Heart rate Oxygen saturation Systolic And Diastolic Provider Name and Address Organization Details Last Updated DateTime 5 177.8 cm 29 kg/m2 91811.9 5 g 100 /min 98 % 124/85 mm[Hg] Janusz Silva MA [facility] 5 16:18:49 Date Recorded Body height Body mass index (BMI) Body weight Body temperature Respiratory rate Pain severity - 0-10 verbal numeric rating [Score] - Reported Oxygen saturation Heart rate Systolic And Diastolic Provider Name and Address Organization Details Last Updated DateTime 4 177.8 cm 28.7 kg/m2 58621.4 7 g 97.8 [degF] 18 /min 0 98 % 98 /min 114/80 mm[Hg] Candelaria Hammond LPN [facility] 4 15:58:28 Date Recorded Body height Body mass index (BMI) Body weight Oxygen saturation Heart rate Body temperature Respiratory rate Systolic And Diastolic Provider Name and Address Organization Details Last Updated DateTime 5 177.8 cm 29.6 kg/m2 80865.0 3 g 95 % 87 /min 97.5 [degF] 17 /min 110/80 mm[Hg] Kristin Holm MA [facility] 5 13:57:17 Date Recorded Body height Body mass index (BMI) Body weight Body temperature Respiratory rate Pain severity - 0-10 verbal numeric rating [Score] - Reported Oxygen saturation Heart rate Systolic And Diastolic Provider Name and Address Organization Details Last Updated DateTime 4 177.8 cm 28.6 kg/m2 29137.8 8 g 96.8 [degF] 18 /min 0 96 % 104 /min 122/88 mm[Hg] Candelaria Hammond LPN [facility] 4 15:28:17 Social History Question Answer Notes LastModified by [...] Do You Have A Medical Power Of Slot Supervisor? No Information not available 09/05/2022 What Was [...] anxious, or unable to sleep at night)? [id number] Information not available 10/12/2020 Family History Relationship Description Onset Age of this Age Resolved Age Notes LastModified by Organization Details LastModified Time Father Hypercholest erolemia mnelsonma Not available 2015 15:19:52 Father Diabetes mellitus mnelsonma Not available 2015 15:19:52 Brother Diabetes mellitus mnelsonma Not available 2015 15:19:52 Medical History Condition Response High Blood Pressure Y Anxiety Disorder Y Acid Reflux (GERD) Y High Cholesterol Y Immunizations Vaccine Type Date Status Note Provider Nam e and Address Organization Details Recorded Time SARS-COV-2 (COVID-19) vaccine, UNSPECIFIED 1 completed Juaquin Silva PA-C Attn: [address] [place], [address], [place] [facility] 10/12/2020 17:13:49 COVID-19, mRNA, LNP-S, PF, 30 mcg/0.3 mL dose 1 completed Tarik Coleman [place], [place] [facility] 12/29/2020 16:05:21 zoster recombinant 1 completed Analisa Smith LPN [place], [place] [facility] 02/13/2021 09:34:38 Tdap 7 completed Not Available [facility] 07/17/2019 02:33:24 Influenza, split virus, quadrivalent, PF 4 completed Fay Theodore RN [place], [place] [facility] 08/11/2024 16:45:43 Influenza, split virus, trivalent, preservative 4 completed Not Available [facility] 04/14/2025 13:47:55 Influenza, split virus, trivalent, PF 5 completed Not Available [facility] 04/14/2025 13:47:55 Influenza, split virus, quadrivalent, PF 9 completed Not Available [facility] 04/14/2025 13:47:55 zoster recombinant 1 completed Not Available [facility] 04/14/2025 13:47:55 Influenza, recombinant, quadrivalent, PF 2 completed Not Available [facility] 04/14/2025 13:47:55 COVID-19, mRNA, LNP-S, bivalent, PF, 50 mcg/0.5 mL or 25mcg/0.25 mL dose 2 completed Not Available [facility] 04/14/2025 13:47:55 Influenza, recombinant, quadrivalent, PF 3 completed Not Available [facility] 04/14/2025 13:47:55 COVID-19, mRNA, LNP-S, PF, 50 mcg/0.5 mL 3 completed Not Available [facility] 04/14/2025 13:47:55 COVID-19, mRNA, LNP-S, PF, 50 mcg/0.5 mL 4 completed Not Available [facility] 04/14/2025 13:47:55 Influenza, split virus, quadrivalent, preservative 7 completed Not Available [facility] 07/17/2019 02:39:18 influenza, unspecified formulation 5 completed Fay Theodore RN [place], [place] [facility] 05/03/2025 15:54:10 Influenza, split virus, quadrivalent, PF 8 completed Not Available [facility] 07/17/2019 02:36:31 Influenza, split virus, quadrivalent, preservative 0 completed Ronel Bourne [place], [place] [facility] 06/06/2020 17:08:14 Influenza, split virus, quadrivalent, preservative 1 completed Ronel Bourne MA null, [place] - [facility] 04/10/2021 15:20:15 Pneumococcal conjugate PCV20, polysaccharide OHP003 conjugate, adjuvant, PF 5 completed Yulyiabry Hassan null, [place] [facility] 04/14/2025 14:54:56 Past Encounters Encounter ID Performer Location Encounter Start Date Encounter Closed Date Diagnosis/Indication Diagnosis SNOMED-CT Code Diagnosis ICD10 Code Diagnosis IMO Codes Diagnosis Note [id number] MD Darcy Chang (Adult Med) [address] [place] [address] [id number] 0 05/30/2014 10:07:51 05/30/2014 17:08:05 Needs influenza immunization [id number] SHEFALI Thorne (Adult Med) [address] [place] [address] 43045-686 0 09/26/2015 15:02:30 09/26/2015 18:20:30 Gastroesophageal reflux disease 150832519 K21.9 Hyperlipidemia 21275271 E78.5 Tobacco user 241722168 Z 72.0 quit one week 2 days ago , uses e-cigarett e periodical ly Anxiety 61783231 F41.9 [id number] MD Darcy Chang (Adult Med) [address] [place] [address] 32582-480 0 08/02/2016 14:43:35 08/02/2016 16:30:31 Tobacco user 979137771 Z72.0 quit one week 2 days ago , uses e-cigarett e periodical ly Gastroesop hageal reflux disease 609682780 K21.9 Anxiety 81795752 F41.9 Hyperlipidemia 43157964 E78.5 Impotence 614257483 N52. 9 Family his tory of diabetes mellitus 605812117 Z83.3 Melanocytic nevus 443776 001 D22.9 [id number] MD Darcy Chang (Adult Med) [address] [place] [address] 63290-417 0 08/08/2016 15:45:14 08/08/2016 16:52:21 Adult health examination 754406332 Z00.00 [id number] MD Darcy Chang (Adult Med) [address] [place] [address] 08517-173 0 02/27/2017 13:55:02 02/27/2017 17:03:34 Ingrowing nail 009235452 L60.0 2nd toe left foot [id number] MD Darcy Chang (Adult Med) [address] [place] [address] 52933-775 0 03/10/2017 14:18:53 03/11/2017 12:20:23 Administration of influenza vaccine 34884668 Z23 [id number] MD Darcy Chang (Adult Med) [address] [place] [address] 05642-857 0 05/05/2018 15:35:44 05/05/2018 16:44:39 Impotence 937805117 N52.9 Gastroesop hageal reflux disease 931406897 K21.9 Administra tion of influenza vaccine 86097998 Z23 Essential hypertension 75897089 I10 Hyperlipidemia 11835583 E78.5 Family his tory of diabetes mellitus 668967948 Z83.3 [id number] MD Darcy Chang (Adult Med) [address] [place] [address] 71239-342 0 06/04/2018 13:51:20 06/04/2018 15:49:06 Acute bronchitis 65364171 J20.9 Essential hypertension 24682397 I10 Gastroesop hageal reflux disease 697030406 K21.9 Hyperlipidemia 40809703 E78.5 Anxiety 59957278 F41.9 Impotence 484184112 N52. 9 Tobacco user 907879314 Z 72.0 quit one week 2 days ago , uses e-cigarett e periodical ly [id number] MD Darcy Chang (Adult Med) [address] [place] [address] [phone] 0 07/02/2018 14:19:01 07/02/2018 15:19:45 Hyperlipidemia 72478221 E78.5 Serum crea tinine outside reference range 828804556 R79.89 Essential hypertension 29715227 I10 Tobacco user 404807824 Z 72.0 quit one week 2 days ago , uses e-cigarett e periodical ly Gastroesop hageal reflux disease 249465905 K21.9 Anxiety 43117952 F41.9 [id number] MD Darcy Chang (Adult Med) [address] [place] [address] 0 08/03/2018 15:07:25 08/03/2018 16:16:37 Constipation 47515702 K59.00 Hyperlipidemia 63449526 E78.5 Essential hypertension 35795527 I10 Tobacco user 119812495 Z 72.0 quit one week 2 days ago , uses e-cigarett e periodical ly Gastroesop hageal reflux disease 865636666 K21.9 [id number] MD Darcy Chang (Adult Med) [address] [place] [address] 0 10/05/2018 16:05:56 10/05/2018 16:46:38 Hyperlipidemia 49408404 E78.5 Gastroesop hageal reflux disease 747140087 K21.9 Impotence 655454468 N52. 9 Chronic ob structive pulmonary disease 63090232 J44.9 Ingrowing nail 941261425 L60.0 2nd toe left foot Essential hypertension 61497346 I10 Anxiety 31095498 F41.9 Chronic ki dney disease stage 2 934748538 N18.2 [id number] MD Darcy Chang (Adult Med) [address] [place] [address] 0 11/30/2018 15:10:06 12/01/2018 08:54:12 Chronic obstructive pulmonary disease 05625180 J44.9 Essential hypertension 35587268 I10 Gastroesop hageal reflux disease 262495549 K21.9 Hyperlipidemia 38305809 E78.5 Impotence 829103597 N52. 9 Depressive disorder 3548 9007 F33.8 Tobacco user 875797264 Z 72.0 quit one week 2 days ago , uses e-cigarett e periodical ly [id number] MD Darcy Chang (Adult Med) [address] [place] [address] [id number] 0 01/01/2019 14:38:49 01/01/2019 16:29:16 Depressive disorder 45153374 F33.8 Essential hypertension 97810095 I10 Chronic ki dney disease stage 2 231874350 N18.2 Hyperlipidemia 56775265 E78.5 Blood in urine 98317445 R31.9 Chronic ob structive pulmonary disease 89974928 J44.9 Gastroesop hageal reflux disease 472937178 K21.9 Anxiety 07314303 F41.9 [id number] MD Darcy Chang (Adult Med) [address] [place] [address] [id number] 0 03/04/2019 14:56:46 03/05/2019 12:23:57 Hyperlipidemia 54008562 E78.5 Gastroesop hageal reflux disease 527543232 K21.9 Essential hypertension 09043334 I10 Overweight 202799103 E66 .3 Tobacco user 939935539 Z 72.0 quit one week 2 days ago , uses e-cigarett e periodical ly Chronic ki dney disease stage 2 586444806 N18.2 Depressive disorder 3548 9007 F33.8 Chronic ob structive pulmonary disease 03564923 J44.9 [id number] Aislinn Smith MD [facility] (Adult Med) [address] [place] [address] [id number] 0 05/18/2019 14:00:26 05/19/2019 10:27:58 Dental abscess 984590271 K04.7 Impotence 224352260 N52. 9 Tobacco user 587467674 Z 72.0 quit one week 2 days ago , uses e-cigarett e periodical ly Anxiety 50429572 F41.9 Chronic ki dney disease stage 2 301991886 N18.2 Chronic ob structive pulmonary disease 98045890 J44.9 Essential hypertension 87282822 I10 Gastroesop hageal reflux disease 656830822 K21.9 Hyperlipidemia 62167369 E78.5 [id number] Aislinn Smith MD [facility] (Adult Med) [address] [place] [address] [id number] 0 08/19/2019 15:55:58 08/19/2019 16:29:37 Impotence 698795235 N52.9 Essential hypertension 89305330 I10 Gastroesop hageal reflux disease 135655165 K21.9 Ingrowing nail 643557775 L60.0 2nd toe left foot Hyperlipidemia 69190973 E78.5 Anxiety 05061439 F41.9 Chronic ki dney disease stage 2 262682936 N18.2 Chronic ob structive pulmonary disease 93156867 J44.9 Depressive disorder 3548 9007 F33.8 [id number] MD Darcy Chang (Adult Med) [address] [place] [address] 68846-008 0 09/17/2019 15:51:51 09/21/2019 12:21:03 Gastroesophageal reflux disease 036349394 K21.9 Obese 001108096 E66.9 Hyperlipidemia 49903622 E78.5 Depressive disorder 3548 9007 F33.8 Chronic ki dney disease stage 2 688891545 N18.2 Chronic ob structive pulmonary disease 74844565 J44.9 Anxiety 94909596 F41.9 [id number] MD Darcy Chang (Adult Med) [address] [place] [address] 03475-736 0 06/06/2020 15:49:13 06/07/2020 12:38:56 Administration of influenza vaccine 95540520 Z23 Tobacco user 176335834 Z 72.0 quit one week 2 days ago , uses e-cigarett e periodical ly Gastroesop hageal reflux disease 406206353 K21.9 Essential hypertension 71207606 I10 Chronic ki dney disease stage 2 235429221 N18.2 Chronic ob structive pulmonary disease 13416468 J44.9 Impotence 573272134 N52. 9 Hyperlipidemia 90991351 E78.5 [id number] MD Darcy Chang (Adult Med) [address] [place] [address] 64461-351 0 10/12/2020 16:44:02 10/13/2020 10:20:31 Chronic kidney disease stage 2 633337631 N18.2 Chronic ob structive pulmonary disease 31372278 J44.9 Essential hypertension 27896225 I10 Under immunized 75179314 8 Z28.3 [id number] SHEFALI Thorne (Adult Med) [address] [place] [address] 27130-693 0 02/09/2021 12:33:47 02/09/2021 16:07:51 Chronic obstructive pulmonary disease 39749869 J44.9 Chronic ki dney disease stage 2 048035608 N18.2 Anxiety 57207797 F41.9 Essential hypertension 65612947 I10 Gastroesop hageal reflux disease 204636674 K21.9 Hyperlipidemia 42267201 E78.5 Tobacco user 060221358 Z 72.0 quit one week 2 days ago , uses e-cigarett e periodical ly [id number] Aislinn Smith MD [facility] (Adult Med) [address] [place] [address] 79006-117 0 04/10/2021 14:56:03 04/10/2021 15:31:43 Hyperlipidemia 46358536 E78.5 Essential hypertension 72585754 I10 Gastroesop hageal reflux disease 835702849 K21.9 Chronic ob structive pulmonary disease 09636333 J44.9 Impotence 801744994 N52. 9 Serum dereck min B12 borderline low 702130719 R79.89 Administra tion of influenza vaccine 27206542 Z23 [id number] Aislinn Smith MD [facility] (Adult Med) [address] [place] [address] 24061-341 0 06/11/2021 14:54:46 06/11/2021 15:12:18 Chronic obstructive pulmonary disease 73115358 J44.9 Gastroesop hageal reflux disease 140590673 K21.9 Hyperlipidemia 48433008 E78.5 Serum crea tinine outside reference range 807427589 R79.89 Serum dereck min B12 borderline low 720200302 R79.89 Anxiety 28894583 F41.9 Chronic ki dney disease stage 2 669030544 N18.2 Constipation 58887717 K5 9.00 Depressive disorder 3548 9007 F33.8 Essential hypertension 42813343 I10 Tobacco user 325563635 Z 72.0 quit one week 2 days ago , uses e-cigarett e periodical ly [id number] Aislinn Smith MD [facility] (Adult Med) [address] [place] [address] [id number] 0 09/10/2021 15:10:53 09/10/2021 16:38:13 Chronic obstructive pulmonary disease 02318016 J44.9 Chronic ki dney disease stage 2 320766748 N18.2 Essential hypertension 26008105 I10 Gastroesop hageal reflux disease 323692054 K21.9 Hyperlipidemia 57786811 E78.5 Screening for malignant neoplasm of prostate 669887259 Z12.5 Serum dereck min B12 borderline low 311051604 R79.89 Hemorrhoids 17437413 K64 .9 Screening for malignant neoplasm of colon 857390755 Z12.11 [id number] Aislinn Smith MD [facility] (Adult Med) [address] [place] [address] 35011-775 0 10/18/2021 13:55:38 10/19/2021 09:43:12 Acute bronchitis 10444179 J20.9 Ingrowing nail 384825334 L60.0 2nd toe left foot Anxiety 36384985 F41.9 Chronic ki dney disease stage 2 527683566 N18.2 Chronic ob structive pulmonary disease 57416623 J44.9 Depressive disorder 3548 9007 F33.8 Essential hypertension 59156366 I10 Gastroesop hageal reflux disease 414564156 K21.9 Hyperlipidemia 31842016 E78.5 Serum dereck min B12 borderline low 240570561 R79.89 Tobacco user 363362603 Z 72.0 quit one week 2 days ago , uses e-cigarett e periodical ly [id number] Meliza Garrido MD [facility] (Adult Med) [address] [place] [address] 68311-494 0 05/15/2022 14:37:27 05/17/2022 12:43:17 Chronic obstructive pulmonary disease 59897643 J44.9 [id number] Meliza Garrido MD [facility] (Adult Med) [address] [place] [address] [id number] 0 07/17/2022 14:26:53 07/18/2022 10:41:15 Chronic obstructive pulmonary disease 66867373 J44.9 Testostero ne level below reference range 185109586 R79.89 Essential hypertension 68052643 I10 Family his tory of diabetes mellitus 283311222 Z83.3 [id number] Eladio Nick MD [facility] [address] [place] [address] 53294-259 2 09/05/2022 13:54:42 09/12/2022 07:41:22 Chronic obstructive pulmonary disease 86960414 J44.9 Using Advair, benefiting better from Symbicort. Stop Advair, start Symbicort 160 mcgPFT to assess lung functionEc josiah t oximetry on room air Nicotine dependence 5629 4008 F17.200 tobacco - 2 ppd for 40 years , 80 PYHsmoking cessation discussed Obesity 026446409 E66.9 [id number] Meliza Garrido MD [facility] (Adult Med) [address] [place] [address] [id number] 0 11/14/2022 14:03:49 11/18/2022 16:05:49 Overweight 682113805 E66.3 Chronic ki dney disease stage 2 571269365 N18.2 Chronic ob structive pulmonary disease 36758567 J44.9 Essential hypertension 16989821 I10 Gastroesop hageal reflux disease 613223792 K21.9 Hyperlipidemia 64352767 E78.5 Tobacco user 901927992 Z 72.0 [id number] Eladio Nick MD [facility] [address] 40396-385 2 12/06/2022 13:54:52 12/10/2022 08:39:08 Sleep disorder 20226568 G47.9 overnight oximetry study 10/08/22, desaturati on below 88% for 8 min, low 85%, GENTRY increased at 17, duration of study 5hr 57 minsWill order sleep study to eval for sleep apnea, pt has complaints /concerns with sleep Chronic ob structive pulmonary disease 29749989 J44.9 stableSymb icort 160 mcgPFT to assess lung function , will request results from Petros Elise rt Spir[facility] ds nebulizer Nicotine dependence 5629 4008 F17.200 tobacco - 2 ppd for 40 years , 80 PYHsmoking cessation discussed LDCT pending Obesity 774275844 E66.9 [id number] MD Darcy Kendall (Adult Med) [address] [place] [address] 40467-648 0 02/26/2023 15:15:12 03/01/2023 08:38:45 Overweight 497693167 E66.3 Chronic ki dney disease stage 2 953679737 N18.2 Chronic ob structive pulmonary disease 34199248 J44.9 Essential hypertension 62436431 I10 Gastroesop hageal reflux disease 597300984 K21.9 Hyperlipidemia 59171015 E78.5 Tobacco user 776821943 Z 72.0 Constipation 46338429 K5 9.00 Family his tory of diabetes mellitus 303949603 Z83.3 Screening for malignant neoplasm of colon 873251719 Z12.11 [id number] Meliza Garrido MD [facility] (Adult Med) [address] [place] [address] 22251-806 0 03/11/2023 14:35:04 03/14/2023 17:14:48 Itching of skin 702947561 L29.9 [id number] [facility] [address] [place] [address] 03/19/2023 14:03:22 03/21/2023 08:59:29 Sleep disorder 62330099 G47.9 overnight oximetry study 10/08/22, desaturati on below 88% for 8 min, low 85%, GENTRY increased at 17, duration of study 5hr 57 minsWill order sleep study to eval for sleep apnea, pt has complaints /concerns with sleep Chronic ob structive pulmonary disease 83269772 J44.9 stableSymb icort 160 mcgPFT to assess lung function , will request results from Petors Garciata rt Spirivane[employer] ds nebulizer Nicotine dependence 5629 4008 F17.200 tobacco - 2 ppd for 40 years , 80 PYHsmoking cessation discussed LDCT pending Obesity 157894531 E66.9 Obstructiv e sleep apnea syndrome 83182703 G47.33 Sleep apnea 12533534 G47 .30 [id number] MD Darcy Kendall (Adult Med) [address] [place] [address] 31014-463 0 06/02/2023 14:23:02 06/04/2023 14:22:43 Overweight 659424892 E66.3 Serum crea tinine outside reference range 809911031 R79.89 Itching of skin 11182021 0 L29.9 Improved Screening for malignant neoplasm of colon 419730071 Z12.11 Result pending [id number] Eladio Nick MD [facility] [address] [place] [address] 00692-836 2 07/09/2023 13:50:29 07/15/2023 13:51:27 Chronic obstructive pulmonary disease 97778017 J44.9 MDIMDI teaching Essential hypertension 20095702 I10 home meds Anxiety 46426899 F41.9 seroquel [id number] Eladio Nick MD [facility] [address] [place] [address] 11/19/2023 15:21:50 11/20/2023 08:34:44 Chronic obstructive pulmonary disease 09724790 J44.9 MDIMDI teaching Essential hypertension 93934715 I10 home meds Anxiety 59672319 F41.9 seroquel Chronic cough 57526364 R 05.3 Nicotine dependence 5629 4008 F17.200 tobacco - 2 ppd for 40 years , 80 PYHsmoking cessation discussed LDCT pending [id number] Meliza Garrido MD [facility] (Adult Med) [address] [place] [address] 21547-166 0 01/12/2024 16:26:03 01/14/2024 15:47:22 Overweight 954774886 E66.3 Essential hypertension 01379199 I10 Family his tory of diabetes mellitus 113216295 Z83.3 Gastroesop hageal reflux disease 439134258 K21.9 Hyperlipidemia 76332362 E78.5 Obese 247263601 E66.9 History of polyp of colon 861494786 Z86.010 F/U GI [id number] Meliza Garrido MD [facility] (Adult Med) [address] [place] [address] 71047-901 0 02/03/2024 16:59:42 02/05/2024 09:46:48 Overweight 287665321 E66.3 Mass of scalp 098199751 R22.0 [id number] Eladio Nick MD [facility] [address] [place] [address] 02/18/2024 15:38:24 02/19/2024 13:44:35 Chronic obstructive pulmonary disease 33970131 J44.9 MDIMDI teaching Essential hypertension 14467675 I10 home meds Anxiety 85945668 F41.9 seroquel Chronic cough 13646518 R 05.3 Nicotine dependence 5629 4008 F17.200 tobacco - 2 ppd for 40 years , 80 PYHsmoking cessation discussed LDCT pending [id number] Eladio Nick MD [facility] [address] [place] [address] 35311-908 2 05/19/2024 14:57:14 05/21/2024 07:06:54 Chronic obstructive pulmonary disease 93724525 J44.9 MDIMDI teaching Essential hypertension 00183340 I10 home meds Anxiety 53175253 F41.9 seroquel Chronic cough 17611215 R 05.3 Nicotine dependence 5629 4008 F17.200 tobacco - 2 ppd for 40 years , 80 PYHsmoking cessation discussed LDCT pending [id number] MD Darcy Kendall (Adult Med) [address] [place] [address] 83420-517 0 07/26/2024 14:54:31 07/28/2024 17:16:09 Chronic obstructive pulmonary disease 77590025 J44.9 Essential hypertension 03451204 I10 Hyperlipidemia 73624292 E78.5 Hyperglycemia 87049366 R 73.9 Screening for malignant neoplasm of prostate 244630905 Z12.5 [id number] MD Darcy Kendall (Adult Med) [address] [place] [address] 07326-256 0 12/06/2024 16:08:41 12/07/2024 11:05:46 Hyperlipidemia 34184726 E78.5 TGL levels in normal range. Will hold ezetimibe. Labs on return in 03/24 Essential hypertension 80876897 I10 Gastroesop hageal reflux disease 503184034 K21.9 Impotence 480388365 F52. 21 Tobacco de pendence syndrome 94081338 F17.200 81061 Will start buproprion prior to taking his last cigarette [id number] MD Darcy Kidd (Adult Med) [address] [place] [address] 62209-725 0 04/14/2025 13:45:08 04/18/2025 12:11:46 Chronic obstructive pulmonary disease 71071081 J44.9 Adult heal th examination 144421142 Z00.01 5085163 Pneumococc al vaccination given 088427825 Z23 6668570636 Impaired f asting glycemia 557478808 R73.01 [id number] Viral scre ening status 505136854 Z11.59 786466 Screening for disorder 962327110 Z13.21 84351204 Health Concerns Section Related Observation LastModified by Organization Detai ls LastModified Time None Recorded Concern Status LastModified by Organization Details LastModified Time None Recorded Advance Directives Directive N: Payers Insurance Date Sequence Insurance Name Policy Number Policy Perales Covered Member ID Perales Member ID Guarantor Name 04/14/2025 1 [place] Esa L Rashi [id number] Esa Markham 04/14/2025 [place] [facility] Esa Augustina Rashi [id number] Esa Markham 04/14/2025 2 [place] [facility] Esa Markham [id number] Esa Rashi 04/14/2025 2 [place] [facility] Esa Markham [id number] Esa Rashi 04/14/2025 3 [employer] - PRIME (MEDICARE REPLACEMENT/AD VANTAGE - HMO) Esa Markham [id number] Esa Markham 04/14/2025 3 [place] [facility] Esa Markham [id number] Esa Rashi 04/14/2025 2 [place] OR [place]IC[place] REPLACEMENT PRIMARY) Esa Markham [id number] Esa Rashi 04/14/2025 2 [place] Esa Markham [id number] Esa Rashi 04/14/2025 2 [place]PLACEMENT PRIMARY) Esa Markham [id number] Esa Rashi Notes Date Note Type Note Provider Name and Address Organization Details Recorded Time 02/18/2024 text/html ROS as noted in the HPI f/u for COPD smokes 1.5 PPD has a smokers cough Baseline SOBNo PND symbicort 160 mcg not covered by insurance ventolin - 1-3x weekly marijuana use twice a day PFTs done at [facility] [facility]22 showed severe airways obstruction Eladio Nick MD [address] [place], [address], [place] [facility] 02/18/2024 16:05:04 05/19/2024 text/html ROS as noted in the HPI f/u for COPD smokes 1.5 PPD has a smokers cough Baseline SOB No PND ventolin - 1-3x weekly marijuana use twice a day PFTs done at [facility] in November 2022 showed severe airways obstruction Eladio Nick MD [address] [place], [address], [place] [facility] 05/19/2024 15:40:59 07/26/2024 text/html Here for routine f/u . Says his insurance will not pay for any testing to be done Meliza Garrido MD Attn: Accounting,[address] [facility], [place], [address], [place] [facility] 07/26/2024 15:32:46 12/06/2024 text/html Here for routine f/u. No new complaints. Wants to quit smoking so he can proceed. 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 PMHX COPD, BPAD, GERD, HLD and Nicotine addiction. Sravan Kaye MD Attn: Accounting,[address] [facility], [place], [address], [place] [facility] 04/14/2025 18:37:43
--- OUTSIDE RECORDS SUMMARY | 2025-05-30 13:48 | XMS_ITS | Clinical Summary ---
Author Organization [facility] Facility Address [address] [place] [id number] Care Team Providers Care Supervisor [employer] Name Role Phone Unavailable Primary Care Provider [...] mouth 1 (one) time each day Active acetaminophen (TYLENOL) 500 MG tablet Take [...] day in the morning 90 tablet 4 Active trifluoperazine (STELAZINE) 10 MG tablet Take 10 mg by mouth 1 (one) time each day if needed 05/17/20 25 Discontinu ed(Alterna te therapy) Active Problems Problem Noted Date Diagnosed Date Emphysema, not otherwise specified 07/20/2024 Bipolar disorder 01/08/2021 Chronic kidney disease stage 2 01/08/2021 Essential hypertension 01/08/2021 Gastroesophageal reflux disease 01/08/2021 Heavy smoker (over 20 per day) 01/08/2021 Hyperlipidemia 01/08/2021 Microscopic hematuria 01/08/2021 Blood in urine 09/03/2019 Encounters Date Type Department Care Team Description 05/17/2025 11:00 AM CANE LOADER Office Visit [facility] [address] [place] [address] [address] [place] [address] Matthew Roger MD Chronic kidney disease stage 2 (Primary Dx); Essential hypertension; Heavy smoker (over 20 per day); Emphysema, not otherwise specified (HCC); Mixed hyperlipidemia; Bipolar disorder, current episode hypomanic (HCC) 05/17/2025 Documentation Only [facility] [address] [place] [phone] Matthew Roger MD from Last 3 Months Immunizations Immunization Administration Dates Next Due Influenza TIV (IM) [...] Sign Reading Time Taken Comments Blood Pressure 108/80 05/17/2025 10:22 AM CANE LOADER Pulse 91 05/17/2025 10:22 AM CANE LOADER Temperature 36.1 C (97 F) 05/17/2025 10:22 AM CANE LOADER Respiratory Rate 18 05/17/2025 10:22 AM CANE LOADER Oxygen Saturation 97% 05/17/2025 10:22 AM CANE LOADER Inhaled Oxygen Concentration - - Weight 91.9 kg (202 lb 9.6 oz) 05/17/2025 10:22 AM CANE LOADER Height 177.8 cm (5' 10) 02/10/2024 10:09 AM CDT Body Mass Index 29.07 02/10/2024 10:09 AM CDT Plan of Treatment Upcoming Encounters Date Type Department Care Team (Late st Contact Info) Description 11/15/2025 10:30 AM CDT Office Visit [facility], [facility] [address] [facility] [address] [place] [phone] Matthew Roger MD [address] [place] [address] Health Maintenance Due Date Last Done Comments Hepatitis B Vaccine (1 of 3 - 19+ 3-dose series) 1990 Pneumococcal Vaccine: 50+ Ye ars (1 of 2 - PCV) 1990 Colorectal Cancer Screening: Annual FOBT 2020 Colorectal Cancer Screening: Colonoscopy 2020 Colorectal Cancer Screening: Sigmoidoscopy 2020 Influenza Vaccine Completed 04/26/2025, , 04/09/2023, Additional history exists Procedures Procedure Name Priority Date/Time Associated Diagnosis Comments EXT RESULT ENTRY Routine 05/16/2025 from Last 3 Months Results * (ABNORMAL) EXT RESULT ENTRY (05/16/2025) WBC 7.5 3.3 - 10.0 10*3/ML Red Blood Cell Count 4.74 Hemoglobin 14.3 13.5 - 17.5 Hematocrit 41.3 41.0 - 53.0 Platelets 211 150 - 399 10*3/UL MCV 87.1(A) 82.0 - 108.0 Sodium 135(A) 137 - 147 Potassium 4.2 3.4 - 5.5 Chloride 99.0 99.0 - 108.0 Carbon Dioxide 29 mmol/L Anion Gap 11.2 <=30 MMOL/L Glucose 138 60 - 200 BUN 10 4 - 21 mg/dL Creatinine 1.09 0.60 - 1.30 mg/dL Total Protein 7.6 6.4 - 8.2 G/DL Albumin 4.8 3.5 - 5.0 g/dL Calcium 9.6 8.7 - 10.7 mg/dL Phosphorus, Serum 3.6 eGFR Non-Afr [place]inamese >60 PTH 24.2 PG/ML Vitamin D, 25-OH, Total 33.2 ng/mL Hemoglobin A1C 5.6 4.0 - 6.0 Protein Urine Random 5 Creatinine, Urine Random 365.3 mg/dL Urine Protein/Creatini ne Ratio 0.0 mg/g creat Glucose, UA Negative mg/dL Bilirubin, UA Negative Ketones, UA Negative Urine Specific [place] 1.022 pH, UA 6.0 Protein, UA 30 1+ mg/dL Urobilinogen, UA Normal Nitrite, UA Negative Leukocytes, UA Negative WBC, Urine None Seen None Seen, Occasional, 0-2 /HPF RBC, Urine None Seen None Seen, Occasional /HPF Epithelial Cells in Urine Occasional /HPF Bacteria, Urine None Seen None Seen, Occasional /HPF Triglycerides 225(H) Cholesterol, Total 103(L) HDL 38(L) mg/dL LDL-Calculated 20 Blood, Urine 0.03 05/16/2025 Historical Provider LAB BLOOD ORDERABLES Maida l Result from Last 3 Months Insurance Medicare
[2025-05-30 14:01] LABS: NT Pro B Type Natriuretic Pept < 20 pg/mL (19.9-100)
[2025-05-31 14:08] LABS: IgG, Subclass 1 493 mg/dL (248-810); IgG, Subclass 2 503 mg/dL (130-555); IgG, Subclass 3 56 mg/dL (15-102); IgG, Subclass 4 71 mg/dL (2-96); Immunoglobulin G, Qn 1212 mg/dL (603-1613)
== END 2025-05-30 12:37 | disposition home or self-care (01) ==
PROVIDERS: PCP Internal Medicine Infectious Disease; Visit Provider Nurse Practitioner
DX: R06.09 Other forms of dyspnea (principal)
CPT/HCPCS: 36415; 82784; 82785; 82787; 83880; 85048; 86480